=== PATIENT | female | born 1985 | race Caucasian/White ===

== ENCOUNTER → 2019-07-13 15:13 | Outpatient (BNVA) | payer MEDICAID, SELFPAY | PROVIDERS: Visit Provider Nurse Practitioner | DX: R05 Cough (principal); R50.9 Fever, unspecified | CPT/HCPCS: 87804 ==

== ENCOUNTER 2019-09-11 17:38 | Emergency (ER) | payer MEDICAID, SELFPAY ==
[2019-09-11 17:40] VITALS: BP 229/115; PULSE 99; RESP 20; TEMP 36.9; O2SAT 96; BMI 67.6
--- NOTE | 2019-09-11 17:48 | W.ED.DENTAL ---
HPI - Dental/Oral General: Chief complaint: Dental/Oral Stated complaint: DENTAL PAIN Time Seen by Provider: 09/11/19 17:40 History of Present Illness: HPI Narrative: Patient is a 34-year-old female who comes to the ED with dental pain. Pain is located in the upper jaw and around teeth #9 and 10. Pain started about a week ago and has progressed. Patient denies any swelling that is affecting airway. Pain and mild swelling in the front upper maxillary region. Patient has poor dental health and is planning on getting her teeth pulled. Patient has a dentist currently, but they are not seeing any patients because of COVID-19. She is going to call early next week to try to get an appointment set up. Denies any fever, chills, chest pain, shortness of breath, nausea, vomiting. Associated symptoms: Denies fever(s) or painful swallowing Review of Systems Const: Denies: fever, chills or fatigue Eyes: Denies: change in vision or eye discomfort ENMT: Reports: dental pain; Denies: throat pain, painful swallowing, nasal discharge or nasal congestion Card: Denies: chest pain, palpitations, edema, swelling of feet/ankles, shortness of breath on exertion or shortness of breath when lying down Resp: Denies: shortness of breath, productive cough or non-productive cough GI: Denies: abdominal pain, nausea, vomiting, diarrhea, constipation or blood in stool : Denies: flank pain, painful urination or blood in urine Musc: Denies: neck pain, back pain or extremity swelling Skin/Breast: Denies: rash or new lesion Neuro: Denies: headache, numbness in extremities or weakness in extremities [facility] ED PFSH: Medical History Anxiety and depression Chronic low back pain Diabetic neuropathy Essential hypertension Hypothyroid Insomnia PCOS (polycystic ovarian syndrome) Type 2 diabetes mellitus, with long-term current use of insulin Surgical History No pertinent past surgical history Family History Other Cancer Diabetes Social History Smoking and tobacco status: current some day smoker cigarettes Alcohol intake: current Alcohol intake frequency: holidays/special occasions only Current gender identity: Female Physical Exam Const: COMMON NORMALS: no apparent distress, oriented x3 and alert GENERAL APPEARANCE: cooperative, comfortable and well hydrated; not in distress NUTRITIONAL APPEARANCE: obese HENMT: COMMON NORMALS: normocephalic HEAD & SCALP: normocephalic MOUTH: oral and palatal mucosa normal TEETH & GINGIVA: Yes caries (multiple dental caries throughout mouth- Teeth #9 & #10 very poor condition), Yes gingiva abnormal (gingival edema, tenderness around teeth #9 & 10. ) edematous and tender and Yes poor dentition THROAT: posterior oropharynx normal and uvula midline Eye: COMMON NORMALS: PERRL PUPIL: Yes PERRL Neck/C-Spine: COMMON NORMALS: supple GENERAL: Yes normal visual inspection Lymph: LYMPHATIC: no lymphadenopathy noted (No cervical lymphadenopathy noted.) Resp: COMMON NORMALS: normal respiratory effort, no retractions, no use of accessory muscles and clear to auscultation bilaterally EFFORT & INSPECTION: Yes able to speak in complete sentences AUSCULTATION: clear to auscultation bilaterally Cardio: COMMON NORMALS: regular rate, regular rhythm, S1 normal heart sound, S2 normal heart sound, no gallops, no clicks, no murmurs and peripheral pulses 2+ throughout RATE: regular rate RHYTHM: regular rhythm HEART SOUNDS: S1 normal and S2 normal PERIPHERAL PULSES: pulses 2+ throughout GI: COMMON NORMALS: normal to inspection, nondistended, normoactive bowel sounds, soft to palpation, non-tender and no masses PALPATION: Yes soft : COMMON NORMALS: Yes no CVA tenderness BLADDER/KIDNEY EXAM: Yes no CVA tenderness Back/Pelvis: COMMON NORMALS: no CVA tenderness Extremity: COMMON NORMALS: normal to inspection and no pedal edema Neuro: COMMON NORMALS: oriented x3 and moves all extremities SENSORIUM/ORIENTATION: Yes alert Skin: COMMON NORMALS: no rashes or lesions noted GENERAL SKIN EXAM: no rashes or lesions noted and dry skin Course Vital Signs: Vital signs: Vital Signs Temperature 98.4 F 09/11/19 17:40 Pulse Rate 99 09/11/19 17:40 Respiratory Rate 20 H 09/11/19 17:40 Blood Pressure 229/115 09/11/19 17:40 Pulse Oximetry 96 09/11/19 17:40 MDM - Dental/Oral MDM Narrative: Medical decision making narrative: Patient is a 34-year-old female who comes to the ED with dental pain. Physical exam showed extensive dental caries and poor dentition health. She also had some tenderness and gingival edema around teeth numbers 9 and 10. Patient was given a hydrocodone for pain and a dose of clindamycin while here on the unit. Patient currently has a dentist but has been waiting for clinic to open back up since COV-. Patient was discharged with clindamycin and told to follow-up with dentist in the next 7 to 10 days. I told patient take ibuprofen or Tylenol for pain. Patient understood and agreed with plan. Discharge Plan Discharge Patient Disposition: Home, Self-Care Clinical Impression: Pain due to dental caries Condition: Stable Prescriptions: New clindamycin HCl 150 mg capsule 300 mg PO QID 7 Days Qty: 56 RF: 0 No Action verapamil 80 mg tablet 80 mg PO TID RF: 0 amitriptyline 75 mg tablet 75 mg PO DAILY RF: 0 lisinopril 20 mg tablet 20 mg PO DAILY RF: 0 metformin 1,000 mg tablet 1,000 mg PO BID RF: 0 gabapentin 600 mg tablet 600 mg PO BID RF: 0 sertraline [Zoloft] 100 mg tablet 100 mg PO DAILY RF: 0 levothyroxine 50 mcg capsule 50 mcg PO DAILY RF: 0 meloxicam 15 mg tablet 15 mg PO DAILY RF: 0 Lantus Solostar U-100 Insulin 100 unit/mL (3 mL) insulin pen 40 unit SUBCUT DAILY RF: 0 insulin lispro [Humalog KwikPen Insulin] 100 unit/mL insulin pen 1 unit SUBCUT TID RF: 0 trazodone 150 mg tablet 150 mg PO .at bedtime Qty: 30 RF: 0 tizanidine 4 mg capsule 4 mg PO QID PRN (Reason: muscle spasm) 30 Days Qty: 120 RF: 0 Discharge Orders: Discharge Order (Routine); Ordered 09/11/19 Ordered By: Ascencion Sparks Discharge Diet: Regular Discharge Activity: Resume usual activity Patient Instructions: Dental Caries (ED), Toothache (ED) Activity Restrictions/Additional Instructions: Take full course of antibiotics as prescribed. Follow-up with dentist next 7 to 10 days. Take Tylenol or ibuprofen to help with pain. Return to the ED if swelling gets worse and starts to affect your airway. Coding Level of Care Code ED Dust Mill Operator for Chg Fwd Exam Comprehensive
[2019-09-11] MEDS: HYDROcodone-acetaminophen 7.5-325 mg Tablet 1 TAB PO (18:12)
[2019-09-11] MEDS: clindamycin 150 mg Capsule 300 MG PO (18:12)
[2019-09-11 18:14] VITALS: BP 188/117; PULSE 96; RESP 20; O2SAT 95
== END 2019-09-11 18:17 | disposition home or self-care (01) ==
LOC: ER 18:17
PROVIDERS: Emergency Provider Physician Assistant; PCP Family Medicine
DX: K02.9 Dental caries, unspecified (principal); Z79.4 Long term (current) use of insulin; E11.40 Type 2 diabetes mellitus with diabetic neuropathy, unspecified; I10 Essential (primary) hypertension; F17.210 Nicotine dependence, cigarettes, uncomplicated; E03.9 Hypothyroidism, unspecified
CPT/HCPCS: 12345; 99282; 99283

== ENCOUNTER → 2019-09-20 12:31 | Outpatient (BNVA) | payer MEDICAID, SELFPAY | PROVIDERS: PCP Family Medicine; Visit Provider Psychiatry & Neurology Psychiatry | DX: F50.81 Binge eating disorder (principal); F33.9 Major depressive disorder, recurrent, unspecified; F06.30 Mood disorder due to known physiological condition, unspecified; E66.9 Obesity, unspecified; F41.9 Anxiety disorder, unspecified; G47.00 Insomnia, unspecified; E28.2 Polycystic ovarian syndrome; F41.1 Generalized anxiety disorder; F41.0 Panic disorder [episodic paroxysmal anxiety] | CPT/HCPCS: 99205 ==

== ENCOUNTER → 2019-09-30 10:49 | Outpatient (BNVA) | payer MEDICAID, SELFPAY | PROVIDERS: PCP Family Medicine; Visit Provider Family Medicine | DX: E11.9 Type 2 diabetes mellitus without complications (principal); I10 Essential (primary) hypertension; Z79.4 Long term (current) use of insulin; E03.9 Hypothyroidism, unspecified | CPT/HCPCS: 80053; 80061; 82044; 84443; 85025 ==

== ENCOUNTER 2019-10-07 15:06 | Outpatient (CLI) | payer MEDICAID, SELFPAY ==
[2019-10-07 15:31] LABS: Basophils # 0.1 10^3/uL (0.0-0.1); Basophils % 0.5 %; Eosinophils # 0.3 10^3/uL (0.0-0.8); Eosinophils % 2.7 %; Hematocrit 39.2 % (37.0-47.0); Hemoglobin 11.9 g/dL (11.5-15.3); Lymphocytes # 2.7 10^3/uL (0.8-4.8); Lymphocytes % 25.8 %; Mean Corpuscular HGB Conc 30.4 g/dL (30.0-36.0); Mean Corpuscular Hemoglobin 24.9 pg (28.0-34.0); Mean Corpuscular Volume 82.2 fL (81-99); Mean Platelet Volume 10.4 fL (7.4-10.4); Monocytes # 0.7 10^3/uL (0.2-0.9); Monocytes % 6.3 %; Neutrophils # 6.7 10^3/uL (1.8-7.7); Neutrophils % 64.2 %; Nucleated Red Blood Cells % 0 %; Platelet Count 349 10^3/cmm (130-400); Red Blood Count 4.77 10^6/uL (4.1-5.3); Red Cell Distribution Width 14.6 % (12.1-15.1); White Blood Count 10.5 10^3/uL (4.0-10.0)
[2019-10-07 20:18] LABS: Estmated Average Glucose 295; Hemoglobin A1C 11.9 % (4.0-6.0)
== END 2019-10-07 15:07 | disposition home or self-care (01) ==
LOC: LAB 15:10
PROVIDERS: PCP Family Medicine; Visit Provider Family Medicine
DX: E11.9 Type 2 diabetes mellitus without complications (principal); Z79.4 Long term (current) use of insulin
CPT/HCPCS: 36415; 83036; 85025

== ENCOUNTER 2019-10-12 17:24 | Emergency (ER) | payer MEDICAID, SELFPAY ==
[2019-10-12 17:35] VITALS: BP 198/121; PULSE 77; RESP 16; TEMP 36.8; O2SAT 96; BMI 63.4
--- NOTE | 2019-10-12 17:41 | W.ED.DENTAL ---
HPI - Dental/Oral General: Chief complaint: Dental/Oral Stated complaint: dental pain Time Seen by Provider: 10/12/19 17:40 History of Present Illness: HPI Narrative: She complains of dental pain ongoing not able get into the dentist presently MD Complaint: tooth pain Teeth map: 1. Onset (ago): month(s) Duration: intermittent Severity: moderate Severity scale (1-10): 5 Relieving factors: nothing Associated symptoms: Denies fever(s) Treatment prior to arrival: none Review of Systems Const: Denies: fever(s), chills or body aches Eyes: Denies: change in vision or blurry vision ENMT: Reports: other (Dental pain); Denies: throat pain or nasal congestion Card: Denies: chest pain or dyspnea on exertion Resp: Denies: dyspnea, productive cough or non-productive cough GI: Denies: abdominal pain, nausea or vomiting Musc: Denies: extremity pain Skin/Breast: Denies: rash Neuro: Denies: headache(s) Psych: Denies: anxiety or depression Levon/Lymph: Denies: easy bruising PFSH ED PFSH: Medical History (Updated 10/12/19 @ 17:45 by ROWAN Bragg) Anxiety and depression Chronic low back pain Diabetic neuropathy Essential hypertension Hypothyroid Insomnia PCOS (polycystic ovarian syndrome) Type 2 diabetes mellitus, with long-term current use of insulin Surgical History No pertinent past surgical history Family History Other Cancer Diabetes Social History Smoking and tobacco status: current every day smoker cigarettes Alcohol intake: current Alcohol intake frequency: holidays/special occasions only Current gender identity: Female Physical Exam Const: COMMON NORMALS: no acute distress, average body habitus and patient oriented x3 HENMT: COMMON NORMALS: normocephalic HEAD & SCALP: normal to inspection and normocephalic FACE & SINUS: normal facial exam TEETH & GINGIVA: Yes caries TEETH & GINGIVA IMAGES: 1. Eye: COMMON NORMALS: conjunctivae normal GENERAL EYE: appearance normal, both eyes and all related structures CONJUNCTIVA: Yes conjunctivae normal Neck/C-Spine: COMMON NORMALS: no JVD Chest: COMMONS NORMALS: normal inspection of the chest Resp: COMMON NORMALS: normal respiratory effort and clear to auscultation bilaterally AUSCULTATION: clear to auscultation bilaterally Cardio: COMMON NORMALS: no JVD, regular rate and regular rhythm RATE: regular rate RHYTHM: regular rhythm GI: OTHER: Extremely obese Extremity: COMMON NORMALS: normal to inspection and full ROM Neuro: COMMON NORMALS: patient oriented x3 Course Vital Signs: Vital signs: Vital Signs Temperature 98.3 F 10/12/19 17:35 Pulse Rate 77 10/12/19 17:35 Respiratory Rate 16 10/12/19 17:35 Blood Pressure 198/121 10/12/19 17:35 Pulse Oximetry 96 10/12/19 17:35 Discharge Plan Discharge Patient Disposition: Home, Self-Care Clinical Impression: Toothache Condition: Stable Prescriptions: New tramadol 50 mg tablet 50 mg PO Q6H PRN (Reason: pain) Qty: 14 RF: 0 Keflex 500 mg capsule 500 mg PO TID 7 Days Qty: 21 RF: 0 No Action verapamil 80 mg tablet 80 mg PO TID RF: 0 gabapentin 600 mg tablet 600 mg PO BID RF: 0 sertraline [Zoloft] 100 mg tablet 100 mg PO DAILY RF: 0 levothyroxine 50 mcg capsule 50 mcg PO DAILY RF: 0 meloxicam 15 mg tablet 15 mg PO DAILY RF: 0 lisinopril 40 mg tablet 40 mg PO DAILY Qty: 30 RF: 0 Lantus Solostar U-100 Insulin 100 unit/mL (3 mL) insulin pen 40 unit SUBCUT DAILY RF: 0 insulin lispro [Humalog KwikPen Insulin] 100 unit/mL insulin pen 1 unit SUBCUT TID RF: 0 tizanidine 4 mg capsule 4 mg PO QID PRN (Reason: muscle spasm) 30 Days Qty: 120 RF: 0 trazodone 150 mg tablet 150 mg PO .at bedtime Qty: 30 RF: 0 Vyvanse 30 mg capsule 30 mg PO DAILY 90 Days Qty: 30 RF: 0 mecobalamin (vitamin B12) 10,000 mcg recon soln 1,000 mcg IM .q2wks 84 Days Qty: 1 RF: 0 zinc gluconate-zinc picolinate 30 mg capsule 30 mg PO QDAY Qty: 30 RF: 2 atorvastatin 20 mg tablet 20 mg PO DAILY Qty: 30 RF: 0 Bydureon 2 mg/0.65 mL pen injector 2 mg SUBCUT Q7D Qty: 4 RF: 0 Victoza 3-Donnie 0.6 mg/0.1 mL (18 mg/3 mL) pen injector See Rx Instructions SUBCUT .COMPLEX Qty: 9 RF: 0 metformin 1,000 mg tablet 1,000 mg PO BID Qty: 60 RF: 0 Discharge Orders: Discharge Order (Routine); Ordered 10/12/19 Ordered By: Aldo Rowley Referrals: Fernanda Stanley DO [Primary Care Provider] - Discharge Diet: Advance as tolerated Discharge Activity: Resume usual activity Patient Instructions: Dental Caries (ED) Activity Restrictions/Additional Instructions: Take medication as prescribed follow-up with dentist as soon as possible Coding Level of Care Code ED Energy Systems Laboratory Director for Soham oMrales
== END 2019-10-12 18:02 | disposition home or self-care (01) ==
PROVIDERS: Emergency Provider Nurse Practitioner Family; PCP Family Medicine
DX: K08.89 Other specified disorders of teeth and supporting structures (principal); Z79.4 Long term (current) use of insulin; E11.40 Type 2 diabetes mellitus with diabetic neuropathy, unspecified; I10 Essential (primary) hypertension; F17.210 Nicotine dependence, cigarettes, uncomplicated
CPT/HCPCS: 12345; 99281

== ENCOUNTER → 2019-10-18 07:55 | Outpatient (BNVA) | payer MEDICAID, SELFPAY | PROVIDERS: PCP Family Medicine; Visit Provider Psychiatry & Neurology Psychiatry | DX: F50.81 Binge eating disorder (principal) | CPT/HCPCS: 99215 ==

== ENCOUNTER → 2019-11-17 07:36 | Outpatient (BNVA) | payer MEDICAID, SELFPAY | PROVIDERS: PCP Family Medicine; Visit Provider Psychiatry & Neurology Psychiatry | DX: F50.81 Binge eating disorder (principal); F33.9 Major depressive disorder, recurrent, unspecified; F41.1 Generalized anxiety disorder; F41.0 Panic disorder [episodic paroxysmal anxiety]; F17.219 Nicotine dependence, cigarettes, with unspecified nicotine-induced disorders | CPT/HCPCS: 99214 ==

== ENCOUNTER 2019-12-15 07:57 | Day surgery (SDC) | payer MEDICAID, SELFPAY ==
[2019-12-07 14:02] VITALS: BMI 61.2
[2019-12-15 08:13] VITALS: BP 185/110; PULSE 77; RESP 18; TEMP 36.2; O2SAT 97
--- NOTE | 2019-12-15 08:36 | W.PM.OPSUD ---
Surgery/Procedure H&P Update DATE OF PROCEDURE: December 15, 2019 DATE H&P PERFORMED: 12/03/19 H&P UPDATE INFORMATION: I have reviewed H&P completed within last 30 days, I have examined patient prior to procedure and No changes to prior documentation PREOP DIAGNOSIS: foreign body upper lip PLANNED PROCEDURE: Operation Date: 12/08/19 15:40 Proposed Procedures p Foreign Body Removal upper lip 50295 M79.5(Not Applicable) - Vasquez Fowler MD Operation Date: 12/15/19 09:35 Proposed Procedures p Foreign Body Removal upper lip 73940 m79.5(Not Applicable) - Vasquez Fowler MD
[2019-12-15 08:46] VITALS: BP 148/98
[2019-12-15] MEDS: sodium chloride 0.9% 1,000 ML 30 ML IV (08:50)
[2019-12-15 08:58] LABS: Glucose Point of Care 194 mg/dL (70-110)
--- NOTE | 2019-12-15 09:15 | ANES.PREANE2 ---
Pre-Anesthetic Assessment Pre-Anesthetic Assessment: Height/Weight: Height 1.5 m Weight 137.438 kg Temp Pulse Resp BP Pulse Ox 97.1 F L 77 18 148/98 97 12/15/19 08:13 12/15/19 08:13 12/15/19 08:13 12/15/19 08:46 12/15/19 08:13 Preop Diagnosis: foreign body upper lip Proposed Procedure: Operation Date: 12/08/19 15:40 Proposed Procedures p Foreign Body Removal upper lip 38816 M79.5(Not Applicable) - Vasquez Fowler MD Operation Date: 12/15/19 09:35 Proposed Procedures p Foreign Body Removal upper lip 52878 m79.5(Not Applicable) - Vasquez Fowler MD Was Beta Kamini taken within 24 hours: Yes Last intake: Intake Last Liquid Date 12/14/19 Last Solid Date 12/14/19 Social: Social History: Alcohol and Tobacco Packs per day: 0.5 Exam: Pre-Anes Outpt Exam: alert, oriented x 3, clear to auscultation bilaterally and regular rate & rhythm Airway: Submandibular: WNL Cervical ROM: WNL MP: 2 Dentition: Chipped History/ROS: No significant history except as noted and No significant complaints Pulmonary: Pulmonary: None reported CV/HEM: CV/HEM: HTN : : None reported Hepatic: Hepatic: None reported GI: GI: None reported Metabolic: Metabolic: DM, Morbid obesity and Thyroid Musc/skel: Musc/skel: None reported Neuropsych: Neuropsych: None reported Anesthetic Plan: ASA status: 3 Anesthesia: Anesthesia Evaluation and MAC Risk of > 500 ml blood loss (7ml/kg in children): No Meds/Allergies Current Medications: Current Medications Generic Name Dose Route Start Last Admin Trade Name Freq PRN Reason Stop Dose Admin Sodium Chloride 1,000 mls @ 30 ml s/hr 12/15/19 08:15 12/15/19 08:50 Sodium Chloride 0.9% IV 12/16/19 08:14 30 mls/hr .Q24H ANA Administration PFSH Anesthesia PFSH: Medical History Anxiety and depression Chronic low back pain Diabetic neuropathy Essential hypertension H/O pilonidal cyst Hypothyroid Insomnia PCOS (polycystic ovarian syndrome) Type 2 diabetes mellitus, with long-term current use of insulin Surgical History H/O hand surgery RIGHT Family History Unknown Cancer Other Diabetes Denies family history of Anesthesia complication Bleeding disorder Social History Smoking and tobacco status: current every day smoker cigarettes Packs smoked per day: 0.25 Alcohol intake: current Alcohol intake frequency: holidays/special occasions only Household members: significant other Marital status: Single Current occupational status: disabled History of recent travel: No Current gender identity: Female Data Anesthesia Other Labs: Laboratory Results - last 48 hr 12/15/19 08:34 POC Glucose 194 Cardiac Studies: No Data to Display
[2019-12-15 09:48] VITALS: BP 128/100; PULSE 75; RESP 18; TEMP 36.4; O2SAT 96
--- NOTE | 2019-12-15 10:03 | PM.OP ---
Operative Report Date of procedure: December 15, 2019 Pre-op Diagnosis: foreign body upper lip Post-op diagnosis: same Procedure Done: Removal of foreign body left upper lip Specimens removed/disposition: Scar tissue left upper lip Surgeon: Vasquez Fowler Anesthesia: MAC Condition: stable Disposition: same day Procedure: The patient was taken to the operating room and placed under MAC after IV antibiotic had been administered. The left side of the face around the lip was prepped and draped in a sterile manner. 1% lidocaine with 0.5% Marcaine was infiltrated submucosally on the upper lip. Using 15 blade the overlying mucosa over the lip piercing was excised and the piercing was removed intact. There was significant scar tissue secondary to the foreign body which had been present for months, this was excised using a 15 blade. Hemostasis was ensured and mucosa was approximated using [id number] 3-0 chromic sutures. The patient was transferred to same-day surgery in stable condition.
[2019-12-15] MEDS: HYDROcodone-acetaminophen 5-325 mg Tablet 1 TAB PO (10:10)
[2019-12-15 10:11] VITALS: BP 128/86; PULSE 74; RESP 18; O2SAT 96
== END 2019-12-15 10:34 | disposition home or self-care (01) ==
PROVIDERS: PCP Family Medicine; Visit Provider Surgery
PROC: (CPT 10120; principal; 2019-12-15 09:35)
DX: S00.551A Superficial foreign body of lip, initial encounter (principal); X58.XXXA Exposure to other specified factors, initial encounter; F41.9 Anxiety disorder, unspecified; F32.9 Major depressive disorder, single episode, unspecified; E11.40 Type 2 diabetes mellitus with diabetic neuropathy, unspecified; Z79.4 Long term (current) use of insulin; E03.9 Hypothyroidism, unspecified; E28.2 Polycystic ovarian syndrome; F17.210 Nicotine dependence, cigarettes, uncomplicated; E66.01 Morbid (severe) obesity due to excess calories; Z68.44 Body mass index [BMI] 60.0-69.9, adult
CPT/HCPCS: 10120; 12345; 36416; 81025; 82962; 88305; J2704; J3490; J7030

== ENCOUNTER → 2020-01-20 08:39 | Outpatient (BNVA) | payer MEDICAID, SELFPAY | PROVIDERS: PCP Family Medicine; Visit Provider Psychiatry & Neurology Psychiatry | DX: F33.9 Major depressive disorder, recurrent, unspecified (principal); F41.1 Generalized anxiety disorder; F50.81 Binge eating disorder; G47.00 Insomnia, unspecified; F17.219 Nicotine dependence, cigarettes, with unspecified nicotine-induced disorders | CPT/HCPCS: 99213 ==

== ENCOUNTER → 2020-02-11 14:45 | Outpatient (BNVA) | payer MEDICAID, SELFPAY | PROVIDERS: PCP Family Medicine; Visit Provider Emergency Medicine | DX: Z11.59 Encounter for screening for other viral diseases (principal) | CPT/HCPCS: 87635 ==

== ENCOUNTER → 2020-03-17 14:10 | Outpatient (BNVA) | payer MEDICAID, SELFPAY | PROVIDERS: PCP Family Medicine; Visit Provider Family Medicine Adult Medicine | DX: E03.9 Hypothyroidism, unspecified (principal); E11.9 Type 2 diabetes mellitus without complications; Z79.4 Long term (current) use of insulin; E78.5 Hyperlipidemia, unspecified; E66.01 Morbid (severe) obesity due to excess calories; Z68.44 Body mass index [BMI] 60.0-69.9, adult; I10 Essential (primary) hypertension | CPT/HCPCS: 36416; 80053; 82962; 83036; 84443 ==

== ENCOUNTER 2020-05-16 18:18 | Emergency (ER) | payer MEDICAID, SELFPAY ==
[2020-05-16 18:44] VITALS: BP 166/88; PULSE 63; RESP 18; TEMP 36.5; O2SAT 96; BMI 62.6
--- NOTE | 2020-05-16 20:36 | W.ED.BACK ---
HPI - Back Pain/Injury General: Chief Complaint: Back Pain/Injury Stated Complaint: LOWER BACK PAIN Time Seen by Provider: 05/16/20 20:29 History of Present Illness: HPI Narrative: Patient arrives via ambulance complaint of chronic low back pain. Patient requesting pain medicine to help with her back pain. Denies any recent injury or change in condition. MD elicited complaint: back pain Pertinent past history: prior back pain Onset (ago): year(s) Timing: constant and progressively worsening Similar Symptoms Previously: Yes Quality: aching Location: lumbar spine Radiation: none Exacerbating factors: movement, sitting upright and walking Relieving factors: immobilization Associated symptoms: Reports no associated symptoms; Deny abdominal pain, chills, fever(s), nausea or vomiting Review of Systems Const: Denies: fever(s), chills or body aches Eyes: Denies: change in vision or blurry vision ENMT: Denies: throat pain or nasal congestion Card: Denies: chest pain or dyspnea on exertion Resp: Denies: dyspnea, productive cough or non-productive cough GI: Denies: abdominal pain, nausea or vomiting Musc: Reports: back pain; Denies: extremity pain Skin/Breast: Denies: rash Neuro: Denies: headache(s) Psych: Denies: anxiety or depression Levon/Lymph: Denies: easy bruising PFSH ED PFSH: Medical History (Updated 05/16/20 @ 20:36 by ROWAN Bragg) Anxiety and depression Anxiety disorder, unspecified Chronic low back pain Diabetic neuropathy Dyslipidemia Essential hypertension H/O pilonidal cyst Hypothyroid Infected pierced lip Insomnia Major depression, recurrent, chronic Mood disorder due to known physiological condition, unspecified Mood disorder due to medical condition Morbid obesity with BMI of 60.0-69.9, adult PCOS (polycystic ovarian syndrome) Sebaceous cyst Type 2 diabetes mellitus, with long-term current use of insulin Surgical History (Updated 03/17/20 @ 14:16 by Dave Thompson MD) H/O hand surgery RIGHT H/O retained foreign body fully removed (12/15/19) Left upper lip Family History Unknown Cancer Other Diabetes Denies family history of Anesthesia complication Bleeding disorder Social History Smoking and tobacco status: current every day smoker cigarettes Packs smoked per day: 0.25 Alcohol intake: current Alcohol intake frequency: holidays/special occasions only Household members: significant other Marital status: Single Current occupational status: disabled History of recent travel: No Current gender identity: Female Physical Exam Const: COMMON NORMALS: no acute distress OTHER: Able to ambulate without difficulty Back/Pelvis: LUMBAR SPINE/LOWER BACK: Yes lumbar ROM normal (Patient very obese hard to inspect or palpate for pain), No lumbar spinal tenderness and No paraspinal muscle tenderness OTHER: No numbness lower extremities neurovascular status intact Psych: COMMON NORMALS: mental status grossly normal Course Vital Signs: Vital signs: Vital Signs Temperature 97.7 F 05/16/20 18:44 Pulse Rate 63 05/16/20 18:44 Respiratory Rate 18 05/16/20 18:44 Blood Pressure 166/88 05/16/20 18:44 Pulse Oximetry 96 05/16/20 18:44 Discharge Plan Discharge Patient Disposition: Home Clinical Impression: Chronic low back pain Qualifiers: Back pain laterality: bilateral Sciatica presence: without sciatica Qualified Code(s): M54.5 - Low back pain Condition: Stable Prescriptions: No Action insulin lispro [Humalog KwikPen Insulin] 100 unit/mL insulin pen 15 unit SUBCUT TID Qty: 15 RF: 2 (DME) blood-glucose meter [Accu-Chek Letha Plus Meter] Misc See Rx Instructions .ROUTE .MEDSUPPLY Qty: 1 RF: 0 (DME) pen needle, diabetic [1st Tier Unifine Pentips] 32 gauge x 5/32 needle See Rx Instructions .ROUTE .MEDSUPPLY Qty: 200 RF: 1 (DME) Accu-Chek Letha Plus test strp Strip See Rx Instructions .ROUTE .MEDSUPPLY Qty: 200 RF: 3 (DME) lancets [Accu-Chek Fastclix Lancet Drum] Misc See Rx Instructions .ROUTE .MEDSUPPLY Qty: 200 RF: 2 fluoxetine 20 mg capsule 20 mg PO DAILY Qty: 30 RF: 1 Lantus Solostar U-100 Insulin 100 unit/mL (3 mL) insulin pen 50 unit SUBCUT DAILY Qty: 15 RF: 0 tizanidine 4 mg capsule 4 mg PO QID PRN (Reason: muscle spasm) 30 Days Qty: 120 RF: 2 Victoza 3-Donnie 0.6 mg/0.1 mL (18 mg/3 mL) pen injector 1.8 mg SUBCUT Q24H Qty: 9 RF: 2 levothyroxine 50 mcg capsule 50 mcg PO DAILY Qty: 30 RF: 5 verapamil 80 mg tablet 80 mg PO TID Qty: 90 RF: 5 meloxicam 15 mg tablet 15 mg PO DAILY Qty: 30 RF: 2 atorvastatin 20 mg tablet 20 mg PO DAILY Qty: 30 RF: 2 losartan 50 mg tablet 50 mg PO DAILY Qty: 90 RF: 1 trazodone 150 mg tablet 150 mg PO .at bedtime Qty: 30 RF: 2 metformin 1,000 mg tablet 1,000 mg PO BID Qty: 60 RF: 5 gabapentin 600 mg tablet 600 mg PO BID Qty: 60 RF: 1 Discharge Orders: Discharge ED (Routine); Ordered 05/16/20 Ordered By: Aldo Rowley Referrals: Fernanda Stanley DO [Primary Care Provider] - Discharge Diet: Usual diet Discharge Activity: Increase activity as tolerated Patient Instructions: Chronic Back Pain (ED) Activity Restrictions/Additional Instructions: Follow-up with medical provider as directed. Take medications as prescribed. Return to the ER or your medical provider if condition worsens. Please read and understand discharge instructions. If any questions ask please. Follow-up Dr. Stanley soon as possible. Can apply ice to the back. Can apply lidocaine patches. Coding Level of Care Code ED Senior Policy Advisor for Soham Morales
[2020-05-16] MEDS: ketorolac 60 mg/2 mL INJ IM (20:47)
== END 2020-05-16 20:51 | disposition home or self-care (01) ==
PROVIDERS: Emergency Provider Nurse Practitioner Family; PCP Family Medicine
DX: G89.29 Other chronic pain (principal); M54.5 Low back pain; Z79.4 Long term (current) use of insulin; E11.40 Type 2 diabetes mellitus with diabetic neuropathy, unspecified; E78.5 Hyperlipidemia, unspecified; I10 Essential (primary) hypertension; F17.210 Nicotine dependence, cigarettes, uncomplicated
CPT/HCPCS: 12345; 99281; 99283; J1885

== ENCOUNTER → 2020-05-24 09:50 | Outpatient (BNVA) | payer MEDICAID, SELFPAY | PROVIDERS: PCP Family Medicine; Visit Provider Obstetrics & Gynecology | DX: Z12.4 Encounter for screening for malignant neoplasm of cervix (principal); B37.3 Candidiasis of vulva and vagina; B37.2 Candidiasis of skin and nail; L08.9 Local infection of the skin and subcutaneous tissue, unspecified | CPT/HCPCS: 88175 ==

== ENCOUNTER → 2020-06-19 10:35 | Outpatient (BNVA) | payer MEDICAID, SELFPAY | PROVIDERS: PCP Family Medicine; Visit Provider Obstetrics & Gynecology | DX: N89.8 Other specified noninflammatory disorders of vagina (principal); B37.3 Candidiasis of vulva and vagina; B37.2 Candidiasis of skin and nail; E66.01 Morbid (severe) obesity due to excess calories; Z68.44 Body mass index [BMI] 60.0-69.9, adult | CPT/HCPCS: 87070; 87106; 87205 ==

== ENCOUNTER → 2020-06-28 07:43 | Outpatient (BNVA) | payer MEDICAID, SELFPAY | PROVIDERS: PCP Family Medicine; Visit Provider Psychiatry & Neurology Psychiatry | DX: F41.1 Generalized anxiety disorder (principal); F41.0 Panic disorder [episodic paroxysmal anxiety]; G47.00 Insomnia, unspecified; F17.219 Nicotine dependence, cigarettes, with unspecified nicotine-induced disorders | CPT/HCPCS: 99214 ==

== ENCOUNTER 2020-09-26 12:56 | Outpatient (CLI) | payer MEDICAID, SELFPAY ==
--- NOTE | 2020-09-26 13:03 | XR_ITS ---
WS: [id number] LUMBAR SPINE: 5 VIEWS TECHNIQUE: AP, obliques, lateral and L5-S1 spot. HISTORY: LOW BACK PAIN, CHRONIC COMPARISON: 03/07/2018 Lumbar vertebra are normally aligned. Small endplate osteophytes at all levels and facet arthritis. L2 limbus deformity. No significant for aminal stenosis. SI joints are symmetric bilaterally. No soft tissue abnormalities. XR/XR lumbar spine min 4V [id number] IMPRESSION: Mild lumbar spondylosis. No acute fractures or significant foraminal stenosis.
== END 2020-09-26 12:57 | disposition home or self-care (01) ==
PROVIDERS: PCP Family Medicine; Visit Provider Nurse Practitioner Family
DX: M54.5 Low back pain (principal); M47.816 Spondylosis without myelopathy or radiculopathy, lumbar region
CPT/HCPCS: 72110

== ENCOUNTER → 2020-10-17 12:57 | Outpatient (BNVA) | payer MEDICAID, SELFPAY | PROVIDERS: PCP Nurse Practitioner Family; Referring Provider Nurse Practitioner Family; Visit Provider Anesthesiology | DX: G89.29 Other chronic pain (principal); M54.5 Low back pain; F17.219 Nicotine dependence, cigarettes, with unspecified nicotine-induced disorders; Z79.891 Long term (current) use of opiate analgesic; Z71.6 Tobacco abuse counseling | CPT/HCPCS: 99204 ==

== ENCOUNTER → 2020-11-08 07:43 | Outpatient (BNVA) | payer MEDICAID, SELFPAY | PROVIDERS: PCP Nurse Practitioner Family; Visit Provider Psychiatry & Neurology Psychiatry | DX: F41.1 Generalized anxiety disorder (principal); F41.0 Panic disorder [episodic paroxysmal anxiety]; G47.00 Insomnia, unspecified; F17.219 Nicotine dependence, cigarettes, with unspecified nicotine-induced disorders | CPT/HCPCS: 99214 ==

== ENCOUNTER 2021-04-14 12:07 | Inpatient (IN) | payer MEDICAID, SELFPAY ==
[2021-04-14] VITALS (7 sets, daily range): BP systolic 112–150; BP diastolic 72–95; PULSE 77–116; RESP 18–24; TEMP 36.9–37.3; O2SAT 97–98; BMI 60.5
--- NOTE | 2021-04-14 12:18 | ED.C_ITS ---
HPI - Psych General: Chief Complaint: Psychiatric Symptoms Stated Complaint: DRUG INGESTION Time Seen by Provider: 04/14/21 12:16 History of Present Illness: HPI Narrative: Ms. Calderon is a 36-year-old lady with history of polysubstance abuse, hypertension, hyperlipidemia, hypothyroidism, and insulin-dependent diabetes who presents to the emergency department due to drug ingestion. She reports yesterday she was high on meth and broke up with her significant other. This caused her to feel depressed and suicidal. Approximately 1 hour prior to arrival she took some amount of her medications. She variably reports the number and what medication. To me the patient endorses taking approximately 6 to 7 tablets of one of her blood pressure medications though she is unsure of which one. She reports that she did this with the intention of self-harm and not wanting to be here anymore . she may have told EMS that she took her levothyroxine. The patient clinically appears that she is withdrawing or intoxicated with amphetamines and history is somewhat limited. Otherwise denies medical complaints. No other known specific exacerbating, alleviating, or provoking factors. Denies similar episodes in the past Supplemental information provided by the patient's mother is that the patient has been living in [facility] [place] with individuals who also abuses drugs, they do not currently have heat or electricity so she was moved with a girlfriend to a trailer however has also struggled to take care of herself due to drug habit. She keeps approximately 1 week of medications in a pill container and took up to 4 days worth of medications though it is still unclear exactly which ones she took. Review of Systems General: Reports: 10 or more systems reviewed and unremarkable except in HPI and below PFS ED PFSH: Medical History Anxiety and depression Diagnosed in 2016 and has been on medication. Currently managed by Dr. Devries in [facility]. Chronic low back pain Since about 2014 and currently take ibuprofen. Dyslipidemia Diagnosed in 2016 and is currently on medication managed by her primary care provider Essential hypertension Diagnosed in 2016 and is currently on medication managed by her primary care provider. 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 Does not have an boat joiner helper No pertinent past medical history Denies asthma, seizures, DVT/PE PCP: Dr. Stanley Pain management contract signed Type 2 diabetes mellitus, with long-term current use of insulin Diagnosed in 2007 and is currently on medication managed by her primary care provider. Does not have an boat joiner helper. Surgical History H/O hand surgery Right hand for an infection in 2019 H/O retained foreign body fully removed (12/15/19) Left upper lip Family History Grandmother Diabetes maternal Family/Other Diabetes maternal uncle Denies family history of Colon cancer Ovarian cancer Heart disease Hyperlipidemia Breast cancer Anesthesia complication Bleeding disorder Hypertension Uterine cancer Thyroid condition Stroke Social History Smoking and tobacco status: current every day smoker cigarettes Quit status (tobacco): considering quitting Alcohol intake: current Alcohol intake frequency: holidays/special occasions only Alcohol type: wine Household members: significant other Marital status: Single Current occupational status: disabled History of recent travel: No Current gender identity: Female Physical Exam Narrative: EXAM NARRATIVE: GENERAL/CONSTITUTIONAL - No acute distress. Obese Eyes - PERRL, no conjunctival injection ENMT - Atraumatic external nose and ears. Moist mucous membranes NECK - supple. trachea midline CARDIOVASCULAR -tachycardic rate and regular rhythm. Normal peripheral perfusion RESPIRATORY -clear to auscultation bilaterally. ABDOMEN/GI - Nontender/Nondistended. MSK - Extremities without obvious deformity or tenderness to palpation SKIN - Warm, Dry. Scattered scabs and pick vogt NEURO - alert and appropriately oriented. Moves all extremities equally. PSYCH - poor eye contact. Patient appears clinically intoxicated. Speech at times is mumbled. Course ED course: - Patient was seen and evaluated by me at bedside - Patient placed on cardiac monitors, IV access obtained - Initial evaluation notable for exam as noted above. - Labs notable for leukocytosis, metabolic panel with likely evidence of dehydration. Toxic ingestion labs positive for amphetamine and marijuana on UD S. - Based on ED evaluation at this point there is no obvious condition that would preclude the patient from inpatient management of psychiatric concerns. - Patient likely needs oral rehydration. - Psychiatry service contacted and agreed to admit the patient. Vital Signs: Vital signs: Vital Signs Temperature 98 F 04/18/21 11:13 Pulse Rate 78 04/18/21 11:13 Respiratory Rate 15 04/18/21 11:13 Blood Pressure 134/87 04/18/21 11:13 Pulse Oximetry 100 04/18/21 11:13 [facility] - Psych Medical Records: Attestation: I reviewed the patient's medical records. Lab Data: Attestation: I reviewed the patient's lab results. Labs: Lab Results 04/14/21 04/14/21 04/14/21 13:08 13:08 16:20 WBC 15.6 10^3/uL H 10 ^3/uL (4.0-10.0) RBC 5.40 10^6/uL H 10 ^6/uL (4.1-5.3) Hgb 13.7 g/dL g/dL (11.5-15.3) Hct 45.1 % % (37.0-47.0) MCV 83.5 fl fl (81-99) MCH 25.4 pg L pg (28.0-34.0) MCHC 30.4 g/dL g/dL (30.0-36.0) RDW 15.5 % H % (12.1-15.1) Plt Count 421 10^3/cmm H 10 ^3/cmm (130-400) MPV 11.5 fL H fL (7.4-10.4) Neut % (Auto) 71.9 % % Lymph % (Auto) 20.2 % % Brooke % (Auto) 6.7 % % Eos % (Auto) 0.4 % % Baso % (Auto) 0.4 % % Neut # (Auto) 11.18 10^3/uL H 1 0^3/uL (1.8-7.7) Lymph # (Auto) 3.2 10^3/uL 10^3/ uL (0.8-4.8) Brooke # (Auto) 1.1 10^3/uL H 10^ 3/uL (0.2-0.9) Eos # (Auto) 0.1 10^3/uL 10^3/ uL (0.0-0.8) Baso # (Auto) 0.1 10^3/uL 10^3/ uL (0.0-0.1) Nucleated RBC % (a uto) 0 % % Nucleated RBCs # 0.0 /100WBC /100W BC Sodium 136 mmol/L mmol/L (136-145) Potassium 3.8 mmol/L mmol/L (3.5-5.1) Chloride 102 mmol/L mmol/L (98-107) Carbon Dioxide 17 mmol/L L mmol/ L (22-29) Anion Gap 20.8 H (5-19) BUN 12 mg/dL mg/dL (6-20) Creatinine 0.6 mg/dL mg/dL (0.5-0.9) GFR Calculation 113.1 mL/min mL/m in (90-130) Glucose 228 mg/dL H mg/dL (65-115) POC Glucose Calculated Osmolal ity 289 mOsm/kg mOsm/ kg (285-295) Calcium 9.6 mg/dL mg/dL (8.5-10.5) Total Bilirubin 1.2 mg/dL mg/dL (0.15-1.2) AST 21 U/L U/L (0-32) ALT 12 U/L U/L (0-33) Alkaline Phosphata se 83 IU/L IU/L (35-105) Total Protein 7.9 g/dL g/dL (6.6-8.7) Albumin 4.3 g/dL g/dL (3.5-5.2) Globulin 3.6 g/dL g/dL (1.3-4.6) TSH 1.29 uIU/mL uIU/m L (0.27-4.20) HCG, Qual Negative (Negative) Salicylates < 0.3 mg/dL L mg/ dL (3-10) Urine Opiates Scre en Acetaminophen < 5.0 ug/mL L ug/ mL (10-30) Ur Barbiturates Sc reen Ur Phencyclidine S crn Ur Amphetamines Sc reen U Benzodiazepines Scrn Urine Cocaine Scre en U Marijuana (THC) Screen Ethyl Alcohol < 10 mg/dL mg/dL (0-10) 04/14/21 04/14/21 16:20 18:00 WBC RBC Hgb Hct MCV MCH MCHC RDW Plt Count MPV Neut % (Auto) Lymph % (Auto) Brooke % (Auto) Eos % (Auto) Baso % (Auto) Neut # (Auto) Lymph # (Auto) Brooke # (Auto) Eos # (Auto) Baso # (Auto) Nucleated RBC % (a uto) Nucleated RBCs # Sodium Potassium Chloride Carbon Dioxide Anion Gap BUN Creatinine GFR Calculation Glucose POC Glucose 181 mg/dL H mg/dL (70-110) Calculated Osmolal ity Calcium Total Bilirubin AST ALT Alkaline Phosphata se Total Protein Albumin Globulin TSH HCG, Qual Salicylates Urine Opiates Scre en Negative ng/mL ng /mL (Negative) Acetaminophen Ur Barbiturates Sc reen Negative ng/mL ng /mL (Negative) Ur Phencyclidine S crn Negative ng/mL ng /mL (Negative) Ur Amphetamines Sc reen Positive ng/mL H ng/mL (Negative) U Benzodiazepines Scrn Negative ng/mL ng /mL (Negative) Urine Cocaine Scre en Negative ng/mL ng /mL (Negative) U Marijuana (THC) Screen Positive ng/mL H ng/mL (Negative) Ethyl Alcohol EKG Data^: EKG 1: Attestation: I personally reviewed and interpreted this EKG as follows: EKG interpretation date: 04/14/21 EKG interpretation time: 12:53 Interpretation: Twelve-lead EKG shows a 81. CA interval 168, QRS duration 88, QTc 419. Normal axis. Interpretation: Sinus rhythm. EKG 2: Attestation: I personally reviewed and interpreted this EKG as follows: EKG interpretation date: 04/14/21 EKG interpretation time: 17:27 Interpretation: Twelve-lead EKG shows a regular rhythm at a rate of 69. CA interval 160, QRS duration 87, QTc 426. Normal axis. Interpretation: Sinus rhythm. Discharge Plan Discharge Patient Disposition: Admitted As Inpatient Admit Provider: Justin Bender Clinical Impression: Suicide attempt, Type 2 diabetes mellitus, with long-term current use of insulin, Acute psychosis, Polysubstance abuse Condition: Stable Discharge Diet: Diabetic Discharge Activity: Resume usual activity Coding Level of Care Code ED Publication Distributor for Soham Morales
--- NOTE | 2021-04-14 12:27 | ECG_ITS ---
[facility] Test Date: 2021-04-14 Pat Name: Asia Calderon Department: Room: Gender: Female Head Bone Grinder: : 1985 Requested By: Missael Avendaño Order Number: [id number] Sathish MD: Nader Perera M.D. Measurements Intervals [place] Rate: 81 P: 46 WI: 168 QRS: 60 QRSD: 88 T: 43 QT: 382 QTc: 445 Interpretive Statements SINUS RHYTHM Compared to ECG 07/09/2017 09:03:11 Sinus arrhythmia no longer present Myocardial infarct finding no longer present Electronically Signed On 04-15-2021 13:17:32 REFUGE MANAGER by Nader Perera M.D. [id number] f
[2021-04-14 13:22] LABS: Basophils # 0.1 10^3/uL (0.0-0.1); Basophils % 0.4 %; Eosinophils # 0.1 10^3/uL (0.0-0.8); Eosinophils % 0.4 %; Hematocrit 45.1 % (37.0-47.0); Hemoglobin 13.7 g/dL (11.5-15.3); Lymphocytes # 3.2 10^3/uL (0.8-4.8); Lymphocytes % 20.2 %; Mean Corpuscular HGB Conc 30.4 g/dL (30.0-36.0); Mean Corpuscular Hemoglobin 25.4 pg (28.0-34.0); Mean Corpuscular Volume 83.5 fl (81-99); Mean Platelet Volume 11.5 fL (7.4-10.4); Monocytes # 1.1 10^3/uL (0.2-0.9); Monocytes % 6.7 %; Neutrophils # 11.18 10^3/uL (1.8-7.7); Neutrophils % 71.9 %; Nucleated Red Blood Cells % 0 %; Platelet Count 421 10^3/cmm (130-400); Red Cell Distribution Width 15.5 % (12.1-15.1); White Blood Count 15.6 10^3/uL (4.0-10.0)
[2021-04-14] MEDS: LORazepam 2 mg/mL INJ 1 mL 1 MG IM (13:37)
[2021-04-14 13:51] LABS: Alanine Aminotransferase 12 U/L (0-33); Albumin Level 4.3 g/dL (3.5-5.2); Alkaline Phosphatase 83 IU/L (35-105); Anion Gap 20.8 (5-19); Aspartate Amino Transferase 21 U/L (0-32); Blood Urea Nitrogen 12 mg/dL (6-20); Calcium 9.6 mg/dL (8.5-10.5); Carbon Dioxide 17 mmol/L (22-29); Chloride 102 mmol/L (98-107); Globulin 3.6 g/dL (1.3-4.6); Glomerular Filtration Rate 113.1 mL/min (90-130); Glucose 228 mg/dL (65-115); Osmolality Calculated 289 mOsm/kg (285-295); Potassium 3.8 mmol/L (3.5-5.1); Sodium 136 mmol/L (136-145); Thyroid Stimulating Hormone 1.29 uIU/mL (0.27-4.20); Total Bilirubin 1.2 mg/dL (0.15-1.2); Total Protein 7.9 g/dL (6.6-8.7)
[2021-04-14 13:53] LABS: Acetaminophen < 5.0 ug/mL (10-30); Alcohol Level < 10 mg/dL (0-10); Salicylate < 0.3 mg/dL (3-10)
[2021-04-14] MEDS: LORazepam 2 mg/mL INJ 1 mL IM (14:01)
--- NOTE | 2021-04-14 14:45 | PC.NURSE ---
This RN spoke with pts mom and brother trying to get information about what pt took. When this RN asked pt if she had any thoughts of hurting herself, pt replied yes, I dont want to live anymore . Pt then asked by this RN if something recently happened, pt replied my girlfriend just left me . Pt unclear what she took, mom and brother states pt takes thyroid, blood pressure and oral diabetic medication. Pts brother states pt takes her weeks worth of medication and places then in a weekly pill dispenser and the pill dispenser was empty. Pt reports to this RN she also did Meth today. Mom states for the past 4 days pt has been staying in a local hotel as she is currently homeless, pt was supposed to move into a travel trailer today with friends. Pts brother reports he went to the hotel earlier this afternoon to check on pt after their mom tried repeatedly calling pt. Brother states he knocked on the door of the room for a few minutes and when pt did not answer he went and got a room foster from the assistant front office manager. Brtoerh states he walked into the room and found pt lying face down on the bed with one foot jerking. Brother states he was able to speak with pt, pt brought in to ER. Pt appears to be very restless and agitated but somewhat cooperative. Pt alert, vs taken. Pt placed in psych safe room with sitter at door.
--- NOTE | 2021-04-14 16:29 | PC.NURSE ---
Pt attempted to use commode, unable to give urine. Per Dr. Avendaño pt straight cathed and urine sent ot lab
[2021-04-14 16:40] LABS: HCG Qualitative Urine. Negative (Negative)
[2021-04-14 16:45] LABS: Amphetamines Screen Urine Positive (Negative); Barbiturates Screen Urine Negative (Negative); Benzodiazepines Screen Urine Negative (Negative); Cocaine Screen Urine Negative (Negative); Opiate Screen Urine Negative (Negative); PCP Screen Urine Negative (Negative); THC Screen Urine Positive (Negative)
--- NOTE | 2021-04-14 16:47 | ECG_ITS ---
[facility] Test Date: 2021-04-14 Pat Name: Asia Calderon Department: Room: Gender: Female Dental Service Chief: : 1985 Requested By: Missael Avendaño Order Number: [id number] Sathish MD: Nader Perera M.D. Measurements Intervals [place] Rate: 69 P: 40 NC: 160 QRS: 64 QRSD: 87 T: 42 QT: 407 QTc: 438 Interpretive Statements SINUS RHYTHM WITH SINUS ARRHYTHMIA Compared to ECG 04/14/2021 12:51:38 No significant changes Electronically Signed On 04-16-2021 17:12:34 CONTINUOUS WASHER OPERATOR by Nader Perera M.D. [email or web address]/store/[id number] f
--- NOTE | 2021-04-14 18:06 | PC.NURSE ---
Pts blood glucose; 181. Dr. Avendaño advised
[2021-04-14 18:07] LABS: Glucose Point of Care 181 mg/dL (70-110)
--- NOTE | 2021-04-14 18:52 | PC.NURSE ---
Poison control calling to f/u with pt.
[2021-04-15 05:35] VITALS: BMI 60.5
[2021-04-15 06:00] VITALS: BP 153/85; PULSE 74; RESP 17; TEMP 36.7; O2SAT 96
[2021-04-15 06:26] LABS: Glucose Point of Care 142 mg/dL (70-110)
[2021-04-15] MEDS: neomycin-poly-bacitracin oint 28 gm 1 APPLIC TOPICAL ×2 (07:54→17:04)
[2021-04-15 07:55] VITALS: BP 153/85
[2021-04-15] MEDS: nystatin powder 15 gm Btl 1 APPLIC TOPICAL ×2 (07:55→17:04)
[2021-04-15] MEDS: losartan 50 mg Tablet PO (07:55)
[2021-04-15] MEDS: insulin lispro 100 unit/1 mL SUBCUT ×4 (07:56→20:28)
--- NOTE | 2021-04-15 11:06 | W.PM.NPUH&PS ---
Providers/Chief Complaint Admitting Physician: Justin Bender MD Primary Care Provider: Agnieszka Aguilar Chief Complaint: DRUG INGESTION HPI NPU History of Present Illness Asia Calderon is a 36 year old female who presented to the ED with the following report: Chief Complaint: Psychiatric Symptoms Stated Complaint: DRUG INGESTION Time Seen by Provider: 04/14/21 12:16 History of Present Illness: HPI Narrative: Ms. Calderon is a 36-year-old lady with history of polysubstance abuse, hypertension, hyperlipidemia, hypothyroidism, and insulin-dependent diabetes who presents to the emergency department due to drug ingestion. She reports yesterday she was high on meth and broke up with her significant other. This caused her to feel depressed and suicidal. Approximately 1 hour prior to arrival she took some amount of her medications. She variably reports the number and what medication. To me the patient endorses taking approximately 6 to 7 tablets of one of her blood pressure medications though she is unsure of which one. She reports that she did this with the intention of self-harm and not wanting to be here anymore . she may have told EMS that she took her levothyroxine. The patient clinically appears that she is withdrawing or intoxicated with amphetamines and history is somewhat limited. Otherwise denies medical complaints. No other known specific exacerbating, alleviating, or provoking factors. Denies similar episodes in the past Supplemental information provided by the patient's mother is that the patient has been living in [place] with individuals who also abuses drugs, they do not currently have heat or electricity so she was moved with a girlfriend to a trailer however has also struggled to take care of herself due to drug habit. She keeps approximately 1 week of medications in a pill container and took up to 4 days worth of medications though it is still unclear exactly which ones she took. She was admitted to the neuropsychiatric unit for definitive treatment of those issues. She presents today reporting that she has never been in a psychiatric hospital, she has never had outpatient services, and she has never had medication management, however, she has been on Prozac, in the past, and detailed exploration of records from pharmacies actually has her not having taken it for months. She said she thought she had been up to 40 milligrams. She reports she smokes cigarettes occasionally, drinks alcohol occasionally, has marijuana occasionally, and has had significant struggles with methamphetamine. She denies ever having been to a drug rehabilitation or having a DUI. She reports that things got problematic for her recently, when she and her girlfriend were fighting, and she started having suicidal thoughts, and reports that she was thinking about, or trying, to hang herself. She reports that they broke up and she took some pills. She denies ever having suicide attempts, in the past. She denies past self-injurious behavior. She reports that she is very impulsive. We discussed the risks, benefits, and alternatives of her increasing the Prozac, if we are able to determine that it is actually a medication she is taking but, otherwise, we would restart the prozac at 20 milligrams po qam, and she understood and agreed to proceed as documented this note. PSYCHIATRIC HISTORY: As above. SUBSTANCE ABUSE HISTORY: As above. FAMILY HISTORY: She denies any mental health or addiction issues in her family. DEVELOPMENTAL HISTORY: The patient denies any issues with her mother?s or delivery of her. She learned to walk and talk and met all developmental milestones on time. The patient denies speech therapy, learning support, emotional support, or special education classes. PSYCHOSOCIAL HISTORY: The patient reports that her mother and father were together when she was born, but that she is the only product of that union. She reports that her mom had three other children, other than her, and she believes her dad had some kids, but she is not sure. She reports that her childhood was pretty good and denies emotional, physical, or sexual abuse. She denied any traumas is her life. She graduated from high school but did not graduate from college. She endorses being bisexual with her longest relationship being five years. She has never been , and she never had children. She has never been in the . She denies any yarsani belief system. She reports that she has a limited work history and currently lives in a camper. LEGAL HISTORY: She reports that she has never been to fdc or had any serious legal peril. MEDICAL HISTORY: Denied. She does have obesity per her BMI. Please see ED note for additional details. Meds NPU Home Medications Medication Instructions Recorded Confirmed Last Taken Type blood sugar diagnostic #200 each 11/29/19 04/14/21 Unknown Rx blood-glucose meter #1 each 11/29/19 04/14/21 Unknown Rx lancets #200 each 11/29/19 04/14/21 Unknown Rx pen needle, diabetic 32 gauge x #200 each 11/29/19 04/14/21 Unknown Rx insulin lispro 100 unit/mL 15 unit SUBCUT TID #15 ml 02/02/20 04/14/21 Unknown Rx subcutaneous pen atorvastatin 20 mg tablet 20 mg PO DAILY #30 tab 03/30/20 04/14/21 04/14/21 Rx 80 mg levothyroxine 50 mcg capsule 50 mcg PO DAILY #30 cap 03/30/20 04/14/21 04/14/21 Rx 200 mcg liraglutide 0.6 mg/0.1 mL (18 mg/3 1.8 mg SUBCUT Q24H #9 ml 03/30/20 04/14/21 Unknown Rx mL) subcutaneous pen injector losartan 50 mg tablet 50 mg PO DAILY #90 tab 03/30/20 04/14/21 04/14/21 Rx 200 mg metformin 1,000 mg tablet 1,000 mg PO BID #60 tab MDD see 03/30/20 04/14/21 Unknown Rx pharmacy comment verapamil 80 mg tablet 80 mg PO TID #90 tab 03/30/20 04/14/21 Unknown Rx insulin glargine 100 unit/mL (3 50 unit SUBCUT DAILY #15 ml 05/19/20 04/14/21 Unknown Rx mL) subcutaneous pen tizanidine 4 mg tablet 4 mg PO TID PRN 30 Days #90 tab 10/17/20 04/14/21 Unknown Rx fluoxetine 40 mg capsule 40 mg PO DAILY #30 cap 11/08/20 04/14/21 04/14/21 Rx 160 mg trazodone 150 mg tablet 450 mg PO .HS #90 tab MDD see 11/08/20 04/14/21 Unknown Rx pharmacy comment Allergies Allergy/AdvReac Type Severity Reaction Status Date / Time cyclobenzaprine AdvReac Intermediate dry mouth Verified 11/07/20 11:59 [From Flexeril] PFSH NPU PFS: Medical History Anxiety and depression Diagnosed in 2015 and has been on medication. Currently managed by Dr. Devries in [facility]. Chronic low back pain Since about 2014 and currently take ibuprofen. Dyslipidemia Diagnosed in 2016 and is currently on medication managed by her primary care provider Essential hypertension Diagnosed in 2016 and is currently on medication managed by her primary care provider. Has no director investment banking Hypothyroid Diagnosed in 2016 and is currently managed by her primary care provider. Does not have an nail puller No pertinent past medical history Denies asthma, seizures, DVT/PE PCP: Dr. Stanley Pain management contract signed Type 2 diabetes mellitus, with long-term current use of insulin Diagnosed in 2007 and is currently on medication managed by her primary care provider. Does not have an nail puller. Surgical History H/O hand surgery Right hand for an infection in 2019 H/O retained foreign body fully removed (12/15/19) Left upper lip Family History Grandmother Diabetes maternal Family/Other Diabetes maternal uncle Denies family history of Colon cancer Ovarian cancer Heart disease Hyperlipidemia Breast cancer Anesthesia complication Bleeding disorder Hypertension Uterine cancer Thyroid condition Stroke Social History Smoking and tobacco status: current every day smoker cigarettes Quit status (tobacco): considering quitting Alcohol intake: current Alcohol intake frequency: holidays/special occasions only Alcohol type: wine Household members: significant other Marital status: Single Current occupational status: disabled History of recent travel: No Current gender identity: Female Mental Status Exam MSE Comments: This is an obese, white female, in hospital scrubs with limited grooming and eye contact. No abnormal movements. Cooperative with exam in no acute distress. Speech was slightly decreased rate and volume. Mood described as okay; affect congruent. Thought process, organized. Thought content: patient denied any suicidal or homicidal ideation, there were no delusions reported or noted, patient denied any auditory or visual hallucinations. Attention, concentration, and memory appear intact but none were formally tested. She is alert and oriented times three. Insight and judgment appear limited. Impulse control is impaired. Vitals/I&O/Wt Last Vital Signs Temp 98.0 F 04/15/21 06:00 Pulse 74 04/15/21 06:00 Resp 17 04/15/21 06:00 BP 153/85 04/15/21 07:55 Pulse Ox 96 04/15/21 06:00 Weight last 48 hrs Weight 136.078 kg Weight 136.078 kg Data NPU : 04/14/21 13:08 04/14/21 13:08 A&P Assessment and plan (1) Suicide attempt: Status: Acute (2) Acute psychosis: Status: Acute (3) Polysubstance abuse: Status: Acute (4) Pain management contract signed: Status: Acute (5) Vulvovaginal candidiasis: Status: Acute (6) Skin yeast infection: Status: Acute (7) Dyslipidemia: Status: Acute (8) Morbid obesity with BMI of 60.0-69.9, adult: Status: Acute (9) Chronic diarrhea: Status: Acute (10) Hypothyroid: Status: Chronic (11) Generalized anxiety disorder with panic attacks: Status: Acute (12) Nicotine dependence, cigarettes, with unspecified nicotine-induced disorders: Status: Chronic (13) Type 2 diabetes mellitus, with long-term current use of insulin: Status: Chronic (14) Essential hypertension: Status: Chronic (15) Chronic low back pain: Status: Chronic Qualifiers: Back pain laterality: bilateral Sciatica presence: without sciatica Qualified Code(s): M54.5 - Low back pain; G89.29 - Other chronic pain Additional A&P Information This is a 36-year-old, white female, with no significant mental health history that she has shared, but chart review suggests that she may be confused with follow up at [facility] noted in her chart, with history of depression and drug addiction. 1. Start Prozac 20 mg po qam, and we will continue to evaluate if she is actually receiving medication through a source that is not registering in systems. 2. Encourage individual, group, and milieu therapy. 3. Continue q-15 minute checks for safety. 4. Recommend sober living treatment at the highest level of care to which the patient is willing to commit. Involuntary Hold Information 96 Hour Hold: 96 Hour Involuntary Admission: Yes 96 Hour Hold Ending Date: 04/20/21 96 Hour Hold Ending Time: 00:01 Attestations NPU Medical Necessity Statement*: Inpatient hospitalization is medically necessary and the clinically appropriate intervention, at this time. We will monitor medications and make changes as indicated. Patient will be in the hospital for over two midnights. Likely length of stay is three to five days. Coding Level of Care Code Acute Restuarant Crew Worker for [facility] Fwd Diagnoses Suicide attempt T14.91XA Acute psychosis F23 Polysubstance abuse F19.10 Pain management contract signed Z02.89 Vulvovaginal candidiasis B37.3 Skin yeast infection B37.2 Dyslipidemia E78.5 Morbid obesity with BMI of 60.0-69.9, adult E66.01; Z68.44 Chronic diarrhea K52.9 Hypothyroid E03.9 Generalized anxiety disorder with panic attacks F41.1; F41.0 Nicotine dependence, cigarettes, with unspecified nicotine-induced disorders F17.219 Type 2 diabetes mellitus, with long-term current use of insulin E11.9; Z79.4 Essential hypertension I10 Chronic low back pain M54.5; G89.29 Back pain laterality: bilateral Sciatica presence: without sciatica
[2021-04-15 11:28] LABS: Glucose Point of Care 176 mg/dL (70-110)
[2021-04-15] MEDS: fluoxetine 20 mg Capsule PO (11:51)
[2021-04-15] MEDS: levothyroxine 50 mcg Tablet PO (11:51)
[2021-04-15] MEDS: metformin 500 mg Tablet 1000 MG PO ×2 (11:51→17:04)
[2021-04-15 14:00] VITALS: BP 150/84; PULSE 78; RESP 16; TEMP 36.6; O2SAT 93
--- NOTE | 2021-04-15 14:09 | PC.NURSE ---
Patient asked to speak to nurse in her room. Patient reported she has had a back injury and has difficulty wiping her bottom when she has a bowel movement, at home uses a long handled cleaning aid and needs one here. Called OT, left message of patient need.
[2021-04-15 16:31] LABS: Glucose Point of Care 162 mg/dL (70-110)
[2021-04-15 20:05] VITALS: BP 129/79; PULSE 83; RESP 17; O2SAT 97
[2021-04-15] MEDS: trazodone 50 mg Tablet PO (20:24)
--- NOTE | 2021-04-15 20:25 | PC.NURSE ---
pt requested sleep med, trazodone 50mg given.
[2021-04-15 20:30] LABS: Glucose Point of Care 153 mg/dL (70-110)
--- NOTE | 2021-04-15 22:00 | PC.NURSE ---
pt resting quietly with both eyes closed.
[2021-04-16 06:00] VITALS: BP 131/86; PULSE 90; RESP 15; O2SAT 99
[2021-04-16] MEDS: levothyroxine 50 mcg Tablet PO (06:42)
[2021-04-16 07:14] LABS: Glucose Point of Care 164 mg/dL (70-110)
[2021-04-16] MEDS: insulin lispro 100 unit/1 mL SUBCUT ×4 (09:17→20:57)
[2021-04-16] MEDS: metformin 500 mg Tablet 1000 MG PO ×2 (09:17→18:47)
[2021-04-16 09:18] VITALS: BP 131/86
[2021-04-16] MEDS: fluoxetine 20 mg Capsule PO (09:18)
[2021-04-16] MEDS: losartan 50 mg Tablet PO (09:18)
[2021-04-16 11:33] LABS: Glucose Point of Care 189 mg/dL (70-110)
[2021-04-16 14:00] VITALS: BP 139/81; PULSE 90; RESP 15; TEMP 36.7; O2SAT 99
[2021-04-16 16:31] LABS: Glucose Point of Care 166 mg/dL (70-110)
--- NOTE | 2021-04-16 17:40 | P.NPUPN_ITS ---
Subjective NPU Subjective: Interval history: Patient presents today seeming to be out of the crisis that she found her self in and working with the treatment team for follow-up. Since he is now not committed to major changes but looks to return to [facility] for basic follow-up and is going to attempt sobriety by willpower. We had a discussion about the need sober living treatment to manage her sobriety and she seems somewhat ambivalent. We discussed the likelihood of discharge in the next 48 hours. Mental Status Exam MSE Comments: This is an obese, white female, in hospital scrubs with limited grooming and eye contact. No abnormal movements. Cooperative with exam in no acute distress. Speech was slightly decreased rate and volume. Mood described as better; affect congruent. Thought process, organized. Thought content: patient denied any suicidal or homicidal ideation, there were no delusions reported or noted, patient denied any auditory or visual hallucinations. Attention, concentration, and memory appear intact but none were formally tested. She is alert and oriented times three. Insight and judgment appear limited. Impulse control is impaired. Vitals/I&O/Wt Last Vital Signs Temp 98.0 F 04/16/21 14:00 Pulse 90 04/16/21 14:00 Resp 17 04/16/21 21:40 BP 139/81 04/16/21 14:00 Pulse Ox 99 04/16/21 14:00 Data NPU : 04/14/21 13:08 04/14/21 13:08 A&P Additional A&P Information (1) Suicide attempt: (2) Acute psychosis: (3) Polysubstance abuse: (4) Pain management contract signed: (5) Vulvovaginal candidiasis: (6) Skin yeast infection: (7) Dyslipidemia: (8) Morbid obesity with BMI of 60.0-69.9, adult: (9) Chronic diarrhea: (10) Hypothyroid: (11) Generalized anxiety disorder with panic attacks: (12) Nicotine dependence, cigarettes, with unspecified nicotine-induced disorders: (13) Type 2 diabetes mellitus, with long-term current use of insulin: (14) Essential hypertension: (15) Chronic low back pain: Additional A&P Information This is a 36-year-old, white female, with no significant mental health history t hat she has shared, but chart review suggests that she may be confused with follow up at [facility] noted in her chart, with history of depression and drug addiction. 1. Continue current medication. 2. Encourage individual, group, and milieu therapy. 3. Continue q-15 minute checks for safety. 4. Recommend sober living treatment at the highest level of care to which the patient is willing to commit. Involuntary Hold Information 96 Hour Hold: 96 Hour Involuntary Admission: Yes 96 Hour Hold Ending Date: 04/20/21 96 Hour Hold Ending Time: 00:01 Attestations NPU Medical Necessity Statement*: Inpatient hospitalization is medically necessary and the clinically appropriate intervention, at this time. We will monitor medications and make changes as indicated. Likely length of stay is 1-3 days. Coding Level of Care Code Acute Precinct Captain for Soham Morales
[2021-04-16 20:44] LABS: Glucose Point of Care 202 mg/dL (70-110)
[2021-04-16 21:40] VITALS: RESP 17
[2021-04-17] MEDS: levothyroxine 50 mcg Tablet PO (05:30)
[2021-04-17 06:00] VITALS: RESP 16
[2021-04-17 06:56] LABS: Glucose Point of Care 145 mg/dL (70-110)
[2021-04-17 08:18] VITALS: BP 139/81
[2021-04-17] MEDS: metformin 500 mg Tablet 1000 MG PO ×2 (08:18→17:53)
[2021-04-17] MEDS: losartan 50 mg Tablet PO (08:18)
[2021-04-17] MEDS: fluoxetine 20 mg Capsule PO (08:18)
[2021-04-17] MEDS: insulin lispro 100 unit/1 mL SUBCUT ×3 (08:18→18:18)
[2021-04-17 11:29] LABS: Glucose Point of Care 212 mg/dL (70-110)
[2021-04-17 14:00] VITALS: BP 120/67; PULSE 75; RESP 18; TEMP 36.6; O2SAT 97
--- NOTE | 2021-04-17 16:55 | P.NPUPN_ITS ---
Subjective NPU Subjective: Interval history: Patient presents today denying any lingering thoughts of harm to herself. She was able to talk about her addiction but feels optimistic that she can stop using now as she has in the past without any rigid or structured or intensive substance abuse treatment programming. She has agreed to return to [facility] and reports that she is tolerating her medications well and reports a desire to discharge. We discussed the risk benefits and alternatives of discharge in the next 48 hours. Mental Status Exam MSE Comments: This is an obese, white female, in hospital scrubs with adequate grooming and eye contact. No abnormal movements. Cooperative with exam in no ac iqugmiut distress. Speech was more normal rate and volume. Mood described as better; affect congruent. Thought process, organized. Thought content: patient denied any suicidal or homicidal ideation, there were no delusions reported or noted, patient denied any auditory or visual hallucinations. Attention, concentration, and memory appear intact but none were formally tested. She is alert and oriented times three. Insight and judgment appear limited. Impulse control is limited. Vitals/I&O/Wt Last Vital Signs Temp 98 F 04/17/21 14:00 Pulse 68 04/17/21 21:18 Resp 16 04/17/21 21:18 BP 119/80 04/17/21 21:18 Pulse Ox 96 04/17/21 21:18 Data NPU : 04/14/21 13:08 04/14/21 13:08 A&P Additional A&P Information (1) Suicide attempt: (2) Acute psychosis: (3) Polysubstance abuse: (4) Pain management contract signed: (5) Vulvovaginal candidiasis: (6) Skin yeast infection: (7) Dyslipidemia: (8) Morbid obesity with BMI of 60.0-69.9, adult: (9) Chronic diarrhea: (10) Hypothyroid: (11) Generalized anxiety disorder with panic attacks: (12) Nicotine dependence, cigarettes, with unspecified nicotine-induced disorders: (13) Type 2 diabetes mellitus, with long-term current use of insulin: (14) Essential hypertension: (15) Chronic low back pain: Additional A&P Information This is a 36-year-old, white female, with no significant mental health history that she has shared, but chart review suggests that she may be confused with follow up at [facility] noted in her chart, with history of depression and drug addiction. 1. Continue current medication. 2. Encourage individual, group, and milieu therapy. 3. Continue q-15 minute checks for safety. 4. Recommend sober living treatment at the highest level of care to which the patient is willing to commit. The patient is not interested in intensive drug and alcohol treatment unless she fails in her attempt to just stop using. 5. Likely discharge tomorrow. Involuntary Hold Information 96 Hour Hold: 96 Hour Involuntary Admission: Yes 96 Hour Hold Ending Date: 04/20/21 96 Hour Hold Ending Time: 00:01 Attestations NPU Medical Necessity Statement*: Inpatient hospitalization is medically necessary and the clinically appropriate intervention, at this time. We will monitor medications and make changes as indicated. Likely length of stay is 1-2 days. Coding Level of Care Code Acute Weatherization Specialist for Soham Morales
[2021-04-17 18:10] LABS: Glucose Point of Care 208 mg/dL (70-110)
[2021-04-17 21:03] LABS: Glucose Point of Care 181 mg/dL (70-110)
[2021-04-17 21:18] VITALS: BP 119/80; PULSE 68; RESP 16; O2SAT 96
[2021-04-18] MEDS: levothyroxine 50 mcg Tablet PO (05:54)
[2021-04-18 06:00] VITALS: BP 134/87; PULSE 78; RESP 15; O2SAT 100
[2021-04-18 07:38] LABS: Glucose Point of Care 191 mg/dL (70-110)
[2021-04-18 08:45] VITALS: BP 134/87
[2021-04-18] MEDS: fluoxetine 20 mg Capsule PO (08:45)
[2021-04-18] MEDS: metformin 500 mg Tablet 1000 MG PO (08:45)
[2021-04-18] MEDS: losartan 50 mg Tablet PO (08:45)
[2021-04-18] MEDS: nystatin powder 15 gm Btl 1 APPLIC TOPICAL (08:48)
[2021-04-18] MEDS: neomycin-poly-bacitracin oint 28 gm 1 APPLIC TOPICAL (08:48)
--- NOTE | 2021-04-18 10:28 | W.PM.NPUDCS ---
Diagnoses at Discharge Discharge Diagnosis (1) Suicide attempt: Status: Acute (2) Acute psychosis: Status: Acute (3) Polysubstance abuse: Status: Acute (4) Pain management contract signed: Status: Acute (5) Vulvovaginal candidiasis: Status: Acute (6) Skin yeast infection: Status: Acute (7) Dyslipidemia: Status: Acute Permanent problem details: Diagnosed in 2016 and is currently on medication managed by her primary care provider (8) Morbid obesity with BMI of 60.0-69.9, adult: Status: Acute (9) Chronic diarrhea: Status: Acute (10) Hypothyroid: Status: Chronic Permanent problem details: Diagnosed in 2016 and is currently managed by her primary care provider. Does not have an chemical etch operator (11) Generalized anxiety disorder with panic attacks: Status: Acute (12) Nicotine dependence, cigarettes, with unspecified nicotine-induced disorders: Status: Chronic (13) Type 2 diabetes mellitus, with long-term current use of insulin: Status: Chronic Permanent problem details: Diagnosed in 2007 and is currently on medication managed by her primary care provider. Does not have an chemical etch operator. (14) Essential hypertension: Status: Chronic Permanent problem details: Diagnosed in 2016 and is currently on medication managed by her primary care provider. Has no survey research analyst (15) Chronic low back pain: Status: Chronic Permanent problem details: Since about 2014 and currently take ibuprofen. Qualifiers: Back pain laterality: bilateral Sciatica presence: without sciatica Qualified Code(s): M54.5 - Low back pain; G89.29 - Other chronic pain Reason for Visit Reason for Visit: DRUG INGESTION Brief History: History of Present Illness Asia Calderon is a 36 year old female who presented to the ED with the following report: Chief Complaint: Psychiatric Symptoms Stated Complaint: DRUG INGESTION Time Seen by Provider: 04/14/21 12:16 History of Present Illness: HPI Narrative: Ms. Calderon is a 36-year-old lady with history of polysubstance abuse, hypertension, hyperlipidemia, hypothyroidism, and insulin-dependent diabetes who presents to the emergency department due to drug ingestion. She reports yesterday she was high on meth and broke up with her significant other. This caused her to feel depressed and suicidal. Approximately 1 hour prior to arrival she took some amount of her medications. She variably reports the number and what medication. To me the patient endorses taking approximately 6 to 7 tablets of one of her blood pressure medications though she is unsure of which one. She reports that she did this with the intention of self-harm and not wanting to be here anymore . she may have told EMS that she took her levothyroxine. The patient clinically appears that she is withdrawing or intoxicated with amphetamines and history is somewhat limited. Otherwise denies medical complaints. No other known specific exacerbating, alleviating, or provoking factors. Denies similar episodes in the past Supplemental information provided by the patient's mother is that the patient has been living in [facility] with individuals who also abuses drugs, they do not currently have heat or electricity so she was moved with a girlfriend to a trailer however has also struggled to take care of herself due to drug habit. She keeps approximately 1 week of medications in a pill container and took up to 4 days worth of medications though it is still unclear exactly which ones she took. She was admitted to the neuropsychiatric unit for definitive treatment of those issues. She presents today reporting that she has never been in a psychiatric hospital, she has never had outpatient services, and she has never had medication management, however, she has been on Prozac, in the past, and detailed exploration of records from pharmacies actually has her not having taken it for months. She said she thought she had been up to 40 milligrams. She reports she smokes cigarettes occasionally, drinks alcohol occasionally, has marijuana occasionally, and has had significant struggles with methamphetamine. She denies ever having been to a drug rehabilitation or having a DUI. She reports that things got problematic for her recently, when she and her girlfriend were fighting, and she started having suicidal thoughts, and reports that she was thinking about, or trying, to hang herself. She reports that they broke up and she took some pills. She denies ever having suicide attempts, in the past. She denies past self-injurious behavior. She reports that she is very impulsive. We discussed the risks, benefits, and alternatives of her increasing the Prozac, if we are able to determine that it is actually a medication she is taking but, otherwise, we would restart the prozac at 20 milligrams po qam, and she understood and agreed to proceed as documented this note. PSYCHIATRIC HISTORY: As above. SUBSTANCE ABUSE HISTORY: As above. FAMILY HISTORY: She denies any mental health or addiction issues in her family. DEVELOPMENTAL HISTORY: The patient denies any issues with her mother?s or delivery of her. She learned to walk and talk and met all developmental milestones on time. The patient denies speech therapy, learning support, emotional support, or special education classes. PSYCHOSOCIAL HISTORY: The patient reports that her mother and father were together when she was born, but that she is the only product of that union. She reports that her mom had three other children, other than her, and she believes her dad had some kids, but she is not sure. She reports that her childhood was pretty good and denies emotional, physical, or sexual abuse. She denied any traumas is her life. She graduated from high school but did not graduate from college. She endorses being bisexual with her longest relationship being five years. She has never been , and she never had children. She has never been in the . She denies any latter-day belief system. She reports that she has a limited work history and currently lives in a camper. LEGAL HISTORY: She reports that she has never been to retirement or had any serious legal peril. MEDICAL HISTORY: Denied. She does have obesity per her BMI. Please see ED note for additional details. Hospital Course Hospital Course She slowly acclimated to the individual, group and milieu therapies provided. She was started on Prozac 20 mg p.o. every morning and her other medications were continued. She was somewhat ambivalent about facing some of her challenges including addiction issues. She did show modest improvement during her stay and was able to contract for safety prior to discharge outside of the hospital. During the hospitalization, patient had routine laboratory studies which were within normal limits except for few outliers. Additionally there was a general medical evaluation which was also within normal limits and revealed no new acute processes. Discharge Summary: At the time of discharge, she denied psychosis or lethality. Mood and anxiety were well managed. Patient endorsed a plan to avoid all drugs of abuse and follow-up with the aftercare recommendations of the treatment team. Patient was evaluated and deemed to be absent credible lethality, and had achieved the maximum benefit from an inpatient hospitalization, so was discharged. Involuntary Hold Information 96 Hour Hold: 96 Hour Involuntary Admission: Yes 96 Hour Hold Ending Date: 04/20/21 96 Hour Hold Ending Time: 00:01 Mental Status Exam MSE Comments: This is a morbidly obese, white female, in hospital scrubs with adequate grooming and eye contact. No abnormal movements. Cooperative with exam in no acute distress. Speech was more normal rate and volume. Mood described as better; affect congruent. Thought process, organized. Thought content: patient denied any suicidal or homicidal ideation, there were no delusions reported or noted, patient denied any auditory or visual hallucinations. Attention, concentration, and memory appear intact but none were formally tested. She is alert and oriented times three. Insight and judgment appear limited. Impulse control is limited. Discharge Data Data Completed and Pending: Labs from last 24 hours 04/18/21 04/17/21 04/17/21 07:35 20:59 17:55 POC Glucose 191 H 181 H 208 H 04/17/21 11:26 POC Glucose 212 H Vitals: Last Vital Signs Temp 98 F 04/17/21 14:00 Pulse 78 04/18/21 06:00 Resp 15 04/18/21 06:00 BP 134/87 04/18/21 08:45 Pulse Ox 100 04/18/21 06:00 Discharge Plan Discharge Patient Disposition: Home Condition: Stable Prescriptions: Continued insulin lispro [Humalog KwikPen Insulin] 100 unit/mL insulin pen 15 unit SUBCUT TID Qty: 15 RF: 2 (DME) blood-glucose meter [Accu-Chek Letha Plus Meter] Misc See Rx Instructions .ROUTE .MEDSUPPLY Qty: 1 RF: 0 (DME) pen needle, diabetic [1st Tier Unifine Pentips] 32 gauge x 5/32 needle See Rx Instructions .ROUTE .MEDSUPPLY Qty: 200 RF: 1 (DME) Accu-Chek Letha Plus test strp Strip See Rx Instructions .ROUTE .MEDSUPPLY Qty: 200 RF: 3 (DME) lancets [Accu-Chek Fastclix Lancet Drum] Misc See Rx Instructions .ROUTE .MEDSUPPLY Qty: 200 RF: 2 Victoza 3-Donnie 0.6 mg/0.1 mL (18 mg/3 mL) pen injector 1.8 mg SUBCUT Q24H Qty: 9 RF: 2 levothyroxine 50 mcg capsule 50 mcg PO DAILY Qty: 30 RF: 5 verapamil 80 mg tablet 80 mg PO TID Qty: 90 RF: 5 atorvastatin 20 mg tablet 20 mg PO DAILY Qty: 30 RF: 2 losartan 50 mg tablet 50 mg PO DAILY Qty: 90 RF: 1 metformin 1,000 mg tablet 1,000 mg PO BID MDD see pharmacy comment Qty: 60 RF: 5 Lantus Solostar U-100 Insulin 100 unit/mL (3 mL) insulin pen 50 unit SUBCUT DAILY Qty: 15 RF: 0 No Action hydroxyzine HCl 50 mg tablet 50 mg PO QID PRN (Reason: anxiety) Qty: 120 RF: 1 fluoxetine 40 mg capsule 80 mg PO DAILY Qty: 60 RF: 1 trazodone 150 mg tablet 450 mg PO .HS MDD see pharmacy comment Qty: 90 RF: 2 buprenorphine-naloxone 8-2 mg tablet, sublingual 1 tab sublingual DAILY Qty: 30 RF: 0 Discharge Orders: Discharge Order (Routine); Ordered 04/18/21 Ordered By: Justin Bender Referrals: [facility] [Outside] - 04/25/21 12:15 pm (Appointment with Dr. Devries April 25 at 12:15pm ) Agnieszka Aguilar FNP [Primary Care Provider] - Discharge Diet: Diabetic Discharge Activity: Resume usual activity Patient Instructions: Opioid Safety Discharge Attestations NPU Time Spent in Discharge Care*: less than 30 min Specific Discharge Activities: Specific discharge activities: educating patient, discussing with bilingual case manager/social workers/dc planners, documenting/other paperwork and evaluating patient/reviewing data Coding Level of Care Code Acute Chg FW DC note Diagnoses Suicide attempt T14.91XA Acute psychosis F23 Polysubstance abuse F19.10 Pain management contract signed Z02.89 Vulvovaginal candidiasis B37.3 Skin yeast infection B37.2 Dyslipidemia E78.5 Morbid obesity with BMI of 60.0-69.9, adult E66.01; Z68.44 Chronic diarrhea K52.9 Hypothyroid E03.9 Generalized anxiety disorder with panic attacks F41.1; F41.0 Nicotine dependence, cigarettes, with unspecified nicotine-induced disorders F17.219 Type 2 diabetes mellitus, with long-term current use of insulin E11.9; Z79.4 Essential hypertension I10 Chronic low back pain M54.5; G89.29 Back pain laterality: bilateral Sciatica presence: without sciatica
[2021-04-18] MEDS: insulin lispro 100 unit/1 mL SUBCUT (10:51)
[2021-04-18 11:13] VITALS: BP 134/87; PULSE 78; RESP 15; TEMP 36.6; O2SAT 100
== END 2021-04-18 11:24 | disposition home or self-care (01) | DRG 885 ==
LOC: ER 18:28 → NP 19:37
PROVIDERS: Admitting Provider Psychiatry & Neurology Psychiatry; Emergency Provider Emergency Medicine; PCP Nurse Practitioner Family; Visit Provider Psychiatry & Neurology Psychiatry
DX: F23 Brief psychotic disorder (principal); R45.851 Suicidal ideations; Z68.44 Body mass index [BMI] 60.0-69.9, adult; F15.90 Other stimulant use, unspecified, uncomplicated; I10 Essential (primary) hypertension; E03.9 Hypothyroidism, unspecified; E78.5 Hyperlipidemia, unspecified; E11.9 Type 2 diabetes mellitus without complications; Z79.4 Long term (current) use of insulin; F32.A Depression, unspecified; G89.29 Other chronic pain; M54.50 Low back pain, unspecified; F17.210 Nicotine dependence, cigarettes, uncomplicated; F12.90 Cannabis use, unspecified, uncomplicated; Z63.0 Problems in relationship with spouse or partner; E66.01 Morbid (severe) obesity due to excess calories; Z79.84 Long term (current) use of oral hypoglycemic drugs; Z79.899 Other long term (current) drug therapy; F41.1 Generalized anxiety disorder
CPT/HCPCS: 36415; 36416; 80053; 80306; 80307; 81025; 82962; 84443; 85025; 93005; 96372; 97150; 97165; 99285; J1815; J2060

== ENCOUNTER → 2021-04-25 12:16 | Outpatient (BNVA) | payer MEDICAID, SELFPAY | PROVIDERS: PCP Nurse Practitioner Family; Visit Provider Psychiatry & Neurology Psychiatry | DX: F41.1 Generalized anxiety disorder (principal); F41.0 Panic disorder [episodic paroxysmal anxiety]; G47.00 Insomnia, unspecified; F15.20 Other stimulant dependence, uncomplicated; F17.219 Nicotine dependence, cigarettes, with unspecified nicotine-induced disorders | CPT/HCPCS: 99214 ==

== ENCOUNTER → 2021-04-27 11:41 | Outpatient (BNVA) | payer MEDICAID, SELFPAY | PROVIDERS: PCP Nurse Practitioner Family; Visit Provider Psychiatry & Neurology Psychiatry | DX: F41.1 Generalized anxiety disorder (principal); F41.0 Panic disorder [episodic paroxysmal anxiety]; G47.00 Insomnia, unspecified; F15.20 Other stimulant dependence, uncomplicated; F17.219 Nicotine dependence, cigarettes, with unspecified nicotine-induced disorders | CPT/HCPCS: 80307; 99214 ==

== ENCOUNTER → 2021-05-25 12:05 | Outpatient (BNVA) | payer MEDICAID, SELFPAY | PROVIDERS: PCP Nurse Practitioner Family; Visit Provider Psychiatry & Neurology Psychiatry | DX: F41.1 Generalized anxiety disorder (principal); F41.0 Panic disorder [episodic paroxysmal anxiety]; F15.20 Other stimulant dependence, uncomplicated; F17.219 Nicotine dependence, cigarettes, with unspecified nicotine-induced disorders; Z79.899 Other long term (current) drug therapy | CPT/HCPCS: 80307; 99214 ==

== ENCOUNTER → 2021-06-22 12:48 | Outpatient (BNVA) | payer MEDICAID, SELFPAY | PROVIDERS: PCP Nurse Practitioner Family; Visit Provider Psychiatry & Neurology Psychiatry | DX: F41.0 Panic disorder [episodic paroxysmal anxiety] (principal); F17.219 Nicotine dependence, cigarettes, with unspecified nicotine-induced disorders; F41.1 Generalized anxiety disorder; F15.20 Other stimulant dependence, uncomplicated | CPT/HCPCS: 80307; 99214 ==

== ENCOUNTER → 2021-07-24 14:12 | Outpatient (BNVA) | payer MEDICAID, SELFPAY | PROVIDERS: PCP Nurse Practitioner Family; Visit Provider Psychiatry & Neurology Psychiatry | DX: F15.20 Other stimulant dependence, uncomplicated (principal); Z79.899 Other long term (current) drug therapy | CPT/HCPCS: 80307 ==

== ENCOUNTER → 2021-09-18 15:07 | Outpatient (BNVA) | payer MEDICAID, SELFPAY | PROVIDERS: PCP Nurse Practitioner Family; Referring Provider Nurse Practitioner Family; Visit Provider Orthopaedic Surgery | DX: S42.251A Displaced fracture of greater tuberosity of right humerus, initial encounter for closed fracture (principal); W17.89XA Other fall from one level to another, initial encounter; F17.200 Nicotine dependence, unspecified, uncomplicated | CPT/HCPCS: 73030; 99203; 99204 ==

== ENCOUNTER 2022-01-02 16:01 | Outpatient (CLI) | payer MEDICAID, SELFPAY ==
--- NOTE | 2022-01-02 16:00 | CT_ITS ---
WS: [id number] NONCONTRAST CT RIGHT SHOULDER TECHNIQUE: Noncontrast CT RIGHT shoulder with coronal and sagittal reformatted images. CLINICAL INFORMATION: S42.251A - Displaced fracture of greater tuberosity of ri... COMPARISON: Radiograph September 18, 2021 DLP: 962.[address] scans at [facility] use at least one of these dose optimization techniques: automated e xposure control; mA and/or kV adjustment per patient size (includes targeted exams where dose is matc hed to clinical indication); or iterative reconstruction. FINDINGS: Normal AC joint. Mild downsloping of the acromion. Subacromial space is relatively well-preserved. No rmal glenohumeral joint. Comminuted minimally displaced fractures involving the greater tuberosity wi th fragmentation. No significant healing compared to September 18, 2021. 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 Proximal humeral shaft is normal. Normal lesser tuberosity. Normal scapula. Normal coracoid. Distal clavicle appears normal. Partially visualized RIGHT lung is well aerated. No evidence of Hill-Sachs d eformity. No glenoid fractures. Biceps tendon appears present within the bicipital groove. No axillar y lymphadenopathy. CT/CT shoulder RT wo con* [id number] IMPRESSION: 1. Comminuted fractures of the greater tuberosity with irregularity and fragme ntation. 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 2. Minimal degenerative arthritis AC joint. Mild downsloping acromion. Subacro mial space is preserved. 3. Normal glenoid and scapula. 4. No other visualized fractures
== END 2022-01-02 16:02 | disposition home or self-care (01) ==
LOC: RAD 16:06
PROVIDERS: PCP Nurse Practitioner Family; Visit Provider Orthopaedic Surgery
DX: S42.251A Displaced fracture of greater tuberosity of right humerus, initial encounter for closed fracture (principal); X58.XXXA Exposure to other specified factors, initial encounter; M19.011 Primary osteoarthritis, right shoulder
CPT/HCPCS: 73200

== ENCOUNTER → 2022-01-22 12:46 | Outpatient (BNVA) | payer MEDICAID, SELFPAY | PROVIDERS: PCP Nurse Practitioner Family; Visit Provider Orthopaedic Surgery | DX: S42.251A Displaced fracture of greater tuberosity of right humerus, initial encounter for closed fracture (principal); X58.XXXA Exposure to other specified factors, initial encounter | CPT/HCPCS: 99213 ==

== ENCOUNTER 2022-03-17 14:27 | Emergency (ER) | payer MEDICAID, SELFPAY ==
[2022-03-17 14:31] VITALS: BP 161/107; PULSE 90; RESP 15; O2SAT 93; BMI 59.5
[2022-03-17 14:38] VITALS: BP 161/107; PULSE 90; RESP 15; TEMP 36.7; O2SAT 93
--- NOTE | 2022-03-17 14:44 | W.ED.BACK ---
HPI - Back Pain/Injury General: Chief Complaint: Back Pain/Injury Stated Complaint: Lower back pain Time Seen by Provider: 03/17/22 14:37 Source: patient Mode of arrival: ambulatory Limitations: no limitations History of Present Illness: 37-year-old female presents to the ER today for low back pain x1 week. Patient reports a history of herniated disc however that was about a year ago and things have been going well. Patient denies any recent injury. Denies any recent heavy lifting or change in daily routines. Patient reports the pain is in her middle of the low back. There is no radiating pain. No numbness no tingling. Patient denies any neurological deficits or loss of bowel or bladder control. Patient has been taking ibuprofen and Tylenol at home for the pain. Review of Systems General: Reports: 10 or more systems reviewed and unremarkable except in HPI and below PFSH ED PFSH: Medical History Anxiety and depression Diagnosed in 2016 and has been on medication. Currently managed by Dr. Devries in [facility]. Chronic low back pain Since about 2014 and currently take ibuprofen. Dyslipidemia Diagnosed in 2016 and is currently on medication managed by her primary care provider Essential hypertension Diagnosed in 2016 and is currently on medication managed by her primary care provider. Has no senior service aide Hypothyroid Diagnosed in 2016 and is currently managed by her primary care provider. Does not have an cell plasterer No pertinent past medical history Denies asthma, seizures, DVT/PE PCP: Dr. Stanley Pain management contract signed Type 2 diabetes mellitus, with long-term current use of insulin Diagnosed in 2007 and is currently on medication managed by her primary care provider. Does not have an cell plasterer. Surgical History H/O hand surgery Right hand for an infection in 2019 H/O retained foreign body fully removed (12/15/19) Left upper lip Family History Grandmother Diabetes maternal Family/Other Diabetes maternal uncle Denies family history of Colon cancer Ovarian cancer Heart disease Hyperlipidemia Breast cancer Anesthesia complication Bleeding disorder Hypertension Uterine cancer Thyroid condition Stroke Social History Smoking and tobacco status: current every day smoker cigarettes Packs smoked per day: 0.15 Years cigarettes smoked: 5 Quit status (tobacco): has tried quititng Number of times tried to quit tobacco: 3 Second hand smoke exposure: Yes Smoking risk assessment/counseling performed?: No Alcohol intake: current Alcohol intake frequency: holidays/special occasions only Alcohol type: other Desire information about alcohol rehabilitation?: No Counseling given: No Desire information about substance/drug rehabilitation?: No Counseling given: No Household members: significant other Marital status: Single Current occupational status: disabled History of recent travel: No Current gender identity: Female Female Reproductive History: Date of last menstrual period: 04/05/21 Physical Exam Const: COMMON NORMALS: no acute distress, patient oriented x3, no limitations, alert and well nourished; negative for average body habitus (morbid obesity) Resp: COMMON NORMALS: normal respiratory effort EFFORT & INSPECTION: Yes able to speak in complete sentences Cardio: COMMON NORMALS: regular rate and regular rhythm RATE: regular rate RHYTHM: regular rhythm Back/Pelvis: OTHER: Normal range of motion. Mild tenderness palpation over lumbar spinous processes however no muscle spasms, or paraspinal muscle tenderness noted. Extremity: COMMON NORMALS: normal to inspection, full ROM and no pedal edema Neuro: COMMON NORMALS: patient oriented x3 SENSORIUM/ORIENTATION: Yes alert Psych: COMMON NORMALS: mental status grossly normal, Normal thought process present and cooperative THOUGHT PROCESS: Normal thought process present Skin: COMMON NORMALS: no rashes or lesions noted and no wounds GENERAL SKIN EXAM: no rashes or lesions noted Course ED course: Patient presents for low back pain x1 week. She has a history of a herniated disc that has been well for about a year now. Patient denies any known injury. She has no neurological deficits at this time. No radiating pain. Physical exam is performed in the ER and unremarkable. No imaging recommended given no new injury. Vital Signs: Vital signs: Vital Signs Temperature 98.1 F 03/17/22 14:38 Pulse Rate 90 03/17/22 14:38 Respiratory Rate 15 03/17/22 14:38 Blood Pressure 161/107 03/17/22 14:38 Pulse Oximetry 93 03/17/22 14:38 Oxygen Delivery Me thod 03/17/22 14:38 MDM - Back Pain/Injury Medical Decision Making Patient likely has an acute exacerbation of chronic low back pain. We will treat conservatively at this time. We will do anti-inflammatory, muscle relaxer, steroid. We will do a short burst of steroid as patient is a diabetic and should expect her blood sugars to be slightly elevated for the next several days. Would recommend warm, moist heat. Stretching recommended. Topical muscle rub recommended. Follow-up with PCP in 7 to 10 days if no improvement. Return to the ER with new or worsening symptoms. Patient verbalized understanding and was in agreement with the treatment plan. Critical Care Time Critical Care Time: Critical Care Time: No Discharge Plan Discharge Patient Disposition: Home Clinical Impression: Acute exacerbation of chronic low back pain Condition: Stable Prescriptions: New tizanidine 4 mg capsule 4 mg PO BID PRN (Reason: muscle spasticity) 5 Days Qty: 10 0RF prednisone 20 mg tablet 40 mg PO DAILY 4 Days Qty: 8 0RF ketorolac 10 mg tablet 10 mg PO Q8H PRN (Reason: pain) 3 Days Qty: 9 0RF No Action insulin lispro [Humalog KwikPen Insulin] 100 unit/mL insulin pen 15 unit SUBCUT TID Qty: 15 2RF Rx Instructions: Please dispense needle tips as well (DME) blood-glucose meter [Accu-Chek Letha Plus Meter] Misc See Rx Instructions .ROUTE .MEDSUPPLY Qty: 1 0RF Rx Instructions: As directed (DME) pen needle, diabetic [1st Tier Unifine Pentips] 32 gauge x 5/32 needle See Rx Instructions .ROUTE .MEDSUPPLY Qty: 200 1RF Rx Instructions: 5 daily (DME) Accu-Chek Letha Plus test strp Strip See Rx Instructions .ROUTE .MEDSUPPLY Qty: 200 3RF Rx Instructions: 4 daily (DME) lancets [Accu-Chek Fastclix Lancet Drum] Misc See Rx Instructions .ROUTE .MEDSUPPLY Qty: 200 2RF Rx Instructions: 4 daily hydroxyzine HCl 50 mg tablet 50 mg PO QID PRN (Reason: anxiety) Qty: 120 2RF mirtazapine 30 mg tablet 30 mg PO .HS Qty: 30 2RF fluoxetine 40 mg capsule 80 mg PO DAILY Qty: 60 2RF cyclobenzaprine 10 mg tablet 10 mg PO TID PRN (Reason: muscle spasm) 7 Days Qty: 20 0RF Victoza 3-Donnie 0.6 mg/0.1 mL (18 mg/3 mL) pen injector 1.8 mg SUBCUT Q24H Qty: 9 2RF Rx Instructions: Please dispense needle tips as well levothyroxine 50 mcg capsule 50 mcg PO DAILY Qty: 30 5RF verapamil 80 mg tablet 80 mg PO TID Qty: 90 5RF atorvastatin 20 mg tablet 20 mg PO DAILY Qty: 30 2RF losartan 50 mg tablet 50 mg PO DAILY Qty: 90 1RF metformin 1,000 mg tablet 1,000 mg PO BID MDD see pharmacy comment Qty: 60 5RF Lantus Solostar U-100 Insulin 100 unit/mL (3 mL) insulin pen 50 unit SUBCUT DAILY Qty: 15 0RF Discharge Orders: Discharge ED (Routine); Ordered 03/17/22 Ordered By: Chichi Shook Referrals: Agnieszka Aguilar [employer] [Primary Care Provider] - Discharge Diet: Usual diet Discharge Activity: Increase activity as tolerated Patient Instructions: Opioid Safety, Pain Management Activity Restrictions/Additional Instructions: Take medications as prescribed. Follow-up with PCP in 10 to 14 days if no improvement. Warm, moist heat recommended. Topical muscle rub recommended but do not use with heat. Return to the ER with new or worsening symptoms. Coding Level of Care Code ED Senior Quality Assurance Engineer for Soham Morales
[2022-03-17 14:50] VITALS: PULSE 87; RESP 16; O2SAT 97
== END 2022-03-17 14:51 | disposition home or self-care (01) ==
PROVIDERS: Emergency Provider Physician Assistant; PCP Nurse Practitioner Family
DX: F17.210 Nicotine dependence, cigarettes, uncomplicated (principal); M54.50 Low back pain, unspecified; G89.29 Other chronic pain; E11.9 Type 2 diabetes mellitus without complications; Z79.4 Long term (current) use of insulin
CPT/HCPCS: 99284

== ENCOUNTER → 2023-01-23 16:09 | Outpatient (BNVA) | payer MEDICAID, SELFPAY | PROVIDERS: PCP Nurse Practitioner Family; Visit Provider Obstetrics & Gynecology | DX: Z20.2 Contact with and (suspected) exposure to infections with a predominantly sexual mode of transmission (principal); N89.8 Other specified noninflammatory disorders of vagina | CPT/HCPCS: 84315; 87491; 87591 ==

== ENCOUNTER → 2023-02-11 15:30 | Outpatient (BNVA) | payer MEDICAID, SELFPAY | PROVIDERS: PCP Nurse Practitioner Family; Visit Provider Obstetrics & Gynecology | DX: Z20.2 Contact with and (suspected) exposure to infections with a predominantly sexual mode of transmission (principal) | CPT/HCPCS: 87491; 87591 ==

== ENCOUNTER 2023-04-09 13:26 | Emergency (ER) | payer MEDICAID, SELFPAY ==
[2023-04-09 13:35] VITALS: BP 173/101; PULSE 78; RESP 17; TEMP 36.6; O2SAT 95; BMI 61.4
--- NOTE | 2023-04-09 13:44 | XRR_ITS ---
PROCEDURE INFORMATION: Exam: XR Right Hand Exam date and time: 04/09/2023 1:47 PM Age: 38 years old Clinical indication: Pain; Hand; Right; Additional info: Finger pain, infection TECHNIQUE: Imaging protocol: Radiologic exam of the right hand. Views: 3 or more views. COMPARISON: No relevant prior studies available. FINDINGS: Bones/joints: No fracture or acute osseous abnormality. No bone erosion or cortical bone destruction or periosteal bone reaction. Soft tissues: Mild soft tissue swelling. No soft tissue gas or radiopaque foreign body. XR/XR hand RT min 3V* [id number] IMPRESSION: No fracture or acute osseous abnormality.
--- NOTE | 2023-04-09 14:12 | W.ED.EXTPRO ---
HPI - Extremity Problem General: Chief complaint: Extremity Problem,Nontraumatic Stated complaint: right hand finger pain Time Seen by Provider: 04/09/23 14:08 History of Present Illness: Patient comes in today for complaints of discomfort to the ring finger on the right hand for the last 2 to 3 weeks with decreased mobility and range of motion. Patient also has a hangnail/ingrown nail to the third digit on the right hand that she do not know if it is causing problems with the hand. Minimal redness and swelling is noted to the hand. Patient has decreased range of motion of the ring finger. Cap refill and sensation is intact. Patient has a history of diabetes, depression, obesity, allergies, and high blood pressure. Associated symptoms: Deny chest pain or fever(s) Review of Systems General: Reports: 10 or more systems reviewed and unremarkable except in HPI and below Const: Denies: fever(s) Card: Denies: chest pain Resp: Denies: dyspnea Musc: Reports: extremity pain PFS ED PFSH: Medical History Anxiety and depression Diagnosed in 2016 and has been on medication. Currently managed by Dr. Devries in [facility]. Chronic low back pain Since about 2014 and currently take ibuprofen. Chronic recurrent major depressive disorder Dyslipidemia Diagnosed in 2016 and is currently on medication managed by her primary care provider Essential hypertension Diagnosed in 2016 and is currently on medication managed by her primary care provider. 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 Does not have an crew director No pertinent past medical history Denies asthma, seizures, DVT/PE PCP: Dr. Stanley Pain management contract signed Type 2 diabetes mellitus, with long-term current use of insulin Diagnosed in 2007 and is currently on medication managed by her primary care provider. Does not have an crew director. Surgical History H/O hand surgery Right hand for an infection in 2019 H/O retained foreign body fully removed (12/15/19) Left upper lip Family History Grandmother Diabetes maternal Family/Other Diabetes maternal uncle Denies family history of Colon cancer Ovarian cancer Heart disease Hyperlipidemia Breast cancer Anesthesia complication Bleeding disorder Hypertension Uterine cancer Thyroid condition Stroke Social History Smoking and tobacco/nicotine status: current every day tobacco/nicotine user cigarettes Packs smoked per day: 0.15 Years cigarettes smoked: 5 Quit status (tobacco/nicotine): has tried quititng Number of times tried to quit tobacco: 3 Second hand smoke exposure: Yes Alcohol intake: current Alcohol intake frequency: holidays/special occasions only Alcohol type: other Substance/Drug Use: former Date of last use: MARIJUANA- about 2 months. Meth 6 months. Household members: significant other Marital status: Single Current occupational status: disabled Current gender identity: Female Physical Exam Const: COMMON NORMALS: alert HENMT: COMMON NORMALS: normocephalic HEAD & SCALP: normocephalic Neck/C-Spine: COMMON NORMALS: full ROM Resp: COMMON NORMALS: normal respiratory effort Cardio: COMMON NORMALS: regular rate RATE: regular rate GI: COMMON NORMALS: non-tender Extremity: RIGHT UPPER EXTREMITY: Yes hand & digits (Superficial paronychia third digit, decreased range of motion fourth digit) Right hand and digits: Yes inspection, Yes palpation and Yes ROM exam Neuro: SENSORIUM/ORIENTATION: Yes alert Skin: COMMON NORMALS: turgor normal GENERAL SKIN EXAM: turgor normal Course Vital Signs: Vital signs: Vital Signs Temperature 98 F 04/09/23 13:35 Pulse Rate 78 04/09/23 13:35 Respiratory Rate 17 04/09/23 13:35 Blood Pressure 173/101 04/09/23 13:35 Pulse Oximetry 95 04/09/23 13:35 Oxygen Delivery Me thod Room Air 04/09/23 13:35 MDM - Extremity (Nontraumatic) Medical Decision Making Patient comes in for evaluation of decreased range of motion of the fourth digit on the right hand. Patient also is concerned about a fingernail infection to the third digit on the right hand. On exam there is no significant redness or swelling noted. Patient has decreased extension range of motion of the fourth digit of the right hand. Patient has tightness along the flexor tendon of the fourth digit. Differential diagnosis includes but not limited to arthritis, trigger finger, tenosynovitis, paronychia, sepsis. No signs of severe illness is noted. No signs of tenosynovitis is noted. Patient has drawing of the flexor tendon of the fourth digit suggesting a trigger finger. Patient also has a superficial paronychia to the third finger. There is minimal to no swelling or redness noted to the hand. We will go ahead and cover patient with Augmentin for her paronychia and mupirocin ointment due to patient's history of diabetes. For patient's trigger finger we will splint it and start her on a course of Celebrex for the next 10 days. Patient was instructed to wear the splint and then exercise the finger daily to help loosen up the tendon. Patient may need to have further evaluation by graphic specialist for injection of the trigger finger or recommendation for surgery. Lab Data Radiology Impressions Hand X-Ray 04/09/23 13:44 IMPRESSION: No fracture or acute osseous abnormality. All radiology interpretation(s) finalized by discharge Discharge Plan Discharge Patient Disposition: Home Clinical Impression: Trigger finger, right ring finger, Paronychia due to ingrown nail Condition: Stable Prescriptions: New amoxicillin-pot clavulanate 875-125 mg tablet 1 tab PO BID Qty: 10 0RF mupirocin 2 % ointment 1 applic topical BID Qty: 22 0RF celecoxib 200 mg capsule 200 mg PO BID Qty: 20 0RF No Action insulin lispro [Humalog KwikPen Insulin] 100 unit/mL insulin pen 15 unit SUBCUT TID Qty: 15 2RF Rx Instructions: Please dispense needle tips as well (DME) blood-glucose meter [Accu-Chek Letha Plus Meter] [facility] See Rx Instructions .ROUTE .MEDSUPPLY Qty: 1 0RF Rx Instructions: As directed (DME) pen needle, diabetic [1st Tier Unifine Pentips] 32 gauge x 5/32 needle See Rx Instructions .ROUTE .MEDSUPPLY Qty: 200 1RF Rx Instructions: 5 daily (DME) Accu-Chek Letha Plus test strp Strip See Rx Instructions .ROUTE .MEDSUPPLY Qty: 200 3RF Rx Instructions: 4 daily (DME) lancets [Accu-Chek Fastclix Lancet Drum] Misc See Rx Instructions .ROUTE .MEDSUPPLY Qty: 200 2RF Rx Instructions: 4 daily glipizide 10 mg tablet 10 mg PO DAILY fluoxetine 40 mg capsule 80 mg PO DAILY Qty: 60 2RF mirtazapine 30 mg tablet 30 mg PO .HS Qty: 30 2RF quetiapine [Seroquel] 50 mg tablet 50 mg PO TID Qty: 90 2RF cetirizine [Zyrtec] 10 mg tablet 10 mg PO DAILY PRN (Reason: allergy symptoms) Qty: 30 0RF nystatin 100,000 unit/gram cream 1 applic topical TID Qty: 30 6RF Rx Instructions: apply to vulva 2-3 x / day mometasone 0.1 % cream 1 applic topical BID Qty: 45 3RF Rx Instructions: apply to vulva 2-3 x / day Victoza 3-Donnie 0.6 mg/0.1 mL (18 mg/3 mL) pen injector 1.8 mg SUBCUT Q24H Qty: 9 2RF Rx Instructions: Please dispense needle tips as well levothyroxine 50 mcg capsule 50 mcg PO DAILY Qty: 30 5RF verapamil 80 mg tablet 80 mg PO TID Qty: 90 5RF atorvastatin 20 mg tablet 20 mg PO DAILY Qty: 30 2RF losartan 50 mg tablet 50 mg PO DAILY Qty: 90 1RF Lantus Solostar U-100 Insulin 100 unit/mL (3 mL) insulin pen 50 unit SUBCUT DAILY Qty: 15 0RF nystatin 100,000 unit/gram cream 1 applic topical BID Qty: 45 3RF Discharge Orders: Discharge ED (Routine); Ordered 04/09/23 Ordered By: Moshe Cooper Referrals: Amparo Espinoza MD [Primary Care Provider] - Discharge Diet: Usual diet Discharge Activity: Increase activity as tolerated Patient Instructions: Trigger Finger (ED) Activity Restrictions/Additional Instructions: For trigger finger wear splint to keep finger straight for the next 2 weeks. 2-3 times daily remove the splint and exercise the finger. Working the finger through its range of motion. Keep the splint in place otherwise. Take anti-inflammatory, celecoxib 200 mg twice a day for 10 days. This will help decrease inflammation along the tendon sheath to allow more frequent mobility. For the infected fingernail use antibiotic ointment twice a day until healed. Take oral antibiotic twice a day for 5 days. Drink plenty of water and fluids with medications. Follow-up with orthopedist for further evaluation and treatment of trigger finger. Return to ED for new concerns. Coding Level of Care Code ED Replenishment Buyer for Soham Morales
--- NOTE | 2023-04-10 08:53 | DCPLANNER ---
Referral was sent to ortho clinic on 04/10/23 at 0854. Clinic to contact patient.
== END 2023-04-09 15:15 | disposition home or self-care (01) ==
PROVIDERS: Emergency Provider Nurse Practitioner Family; PCP Family Medicine
DX: M65.341 Trigger finger, right ring finger (principal); L03.011 Cellulitis of right finger; F17.210 Nicotine dependence, cigarettes, uncomplicated; E78.5 Hyperlipidemia, unspecified; I10 Essential (primary) hypertension; E11.9 Type 2 diabetes mellitus without complications; Z79.4 Long term (current) use of insulin; Z79.84 Long term (current) use of oral hypoglycemic drugs
CPT/HCPCS: 73130; 99283

== ENCOUNTER → 2023-05-26 10:35 | Outpatient (BNVA) | payer MEDICAID, SELFPAY | PROVIDERS: PCP Family Medicine; Visit Provider Specialist | DX: M79.641 Pain in right hand | CPT/HCPCS: 99204 ==

== ENCOUNTER 2023-06-26 15:03 | Outpatient (CLI) | payer MEDICAID, SELFPAY ==
--- NOTE | 2023-06-26 15:15 | MR_ITS ---
WS: [id number] MRI OF THE RIGHT HAND WITHOUT GADOLINIUM ENHANCEMENT. INDICATION: RIGHT ring finger pain for 2 months TECHNIQUE: Axial T1, axial T2, coronal T1, coronal STIR, sagittal T2 fat-sat, coronal 3D FSPGR FINDINGS: Normal anatomic alignment. Normal bone marrow signal in the fourth digit. No evidence of os teomyelitis. No acute fractures. Visualized proximal and distal carpal bones normal in appearance. No rmal metacarpals. Diffuse fluid along the fourth finger flexor tendon sheath extending from the head of the fourth meta carpal distally. Small amount of surrounding soft tissue edema. No evidence of drainable abscess or f luid collection. Flexor compartment tendons are normal in appearance. Recommend correlation with infe ctious or inflammatory tenosynovitis. Recommend correlation with injury. No other acute findings. IMPRESSION: 1. Mild diffuse fluid involving the fourth finger flexor tendon sheath extending from the head of th e fourth metacarpal to the distal phalanx compatible with tenosynovitis. Recommend correlation with i nfectious or inflammatory symptoms. Recommend correlation with injury. Mild associated soft tissue ed daquan. 2. Underlying flexor tendons in the fourth finger demonstrate normal signal and are otherwise normal in appearance. 3. No evidence of osteomyelitis or acute fracture. 4. No other acute findings.
== END 2023-06-26 15:04 | disposition home or self-care (01) ==
LOC: RAD 15:04
PROVIDERS: PCP Physician Assistant; Visit Provider Specialist
DX: S66.114A Strain of flexor muscle, fascia and tendon of right ring finger at wrist and hand level, initial encounter (principal); X58.XXXA Exposure to other specified factors, initial encounter
CPT/HCPCS: 73218

== ENCOUNTER → 2023-07-16 15:28 | Outpatient (BNVA) | payer MEDICAID, SELFPAY | PROVIDERS: PCP Physician Assistant; Visit Provider Nurse Practitioner | DX: M06.4 Inflammatory polyarthropathy (principal); Z79.899 Other long term (current) drug therapy; M65.841 Other synovitis and tenosynovitis, right hand; M79.641 Pain in right hand | CPT/HCPCS: 36415; 80053; 84550; 85025; 85651; 86140; 86225; 86235; 86431; 99214 ==

== ENCOUNTER → 2023-08-01 09:26 | Outpatient (BNVA) | payer MEDICAID, SELFPAY | PROVIDERS: PCP Physician Assistant; Referring Provider Physician Assistant; Visit Provider Internal Medicine | DX: E11.9 Type 2 diabetes mellitus without complications (principal); Z79.4 Long term (current) use of insulin; E03.9 Hypothyroidism, unspecified; E78.5 Hyperlipidemia, unspecified; E66.01 Morbid (severe) obesity due to excess calories; Z68.44 Body mass index [BMI] 60.0-69.9, adult | CPT/HCPCS: 99204 ==

== ENCOUNTER → 2023-08-20 14:01 | Outpatient (BNVA) | payer MEDICAID, SELFPAY | PROVIDERS: PCP Physician Assistant; Visit Provider Specialist | DX: M65.841 Other synovitis and tenosynovitis, right hand | CPT/HCPCS: 99214 ==

== ENCOUNTER 2023-09-06 19:48 | Emergency (ER) | payer MEDICAID, SELFPAY ==
[2023-09-06 20:01] VITALS: BP 164/93; PULSE 86; RESP 17; TEMP 36.7; O2SAT 98; BMI 62.2
--- NOTE | 2023-09-06 20:47 | ED_ITS ---
Documented by User: ALEX Delacruz 09/06/23 20:51 HPI - Dental/Oral General: Chief complaint: Dental/Oral Stated complaint: TOOTH ACHE Time Seen by Provider: 09/06/23 20:32 Source: patient Mode of arrival: ambulatory Limitations: no limitations History of Present Illness: Patient is a 38-year-old female presenting to the emergency department complaining of right upper dental pain. Patient recently had some teeth pulled and was prescribed amoxicillin, but she is noting increased pain. She states she tried to call the dentist to get an appointment, but states she is not able to see him until late next week and to go to the ER if her pain persisted. She has been taking Tylenol, though infrequently for her pain and states this does not provide much relief. I did offer her a bupivacaine shot upon initial visit, to which she denies. She is denying any fever or other symptoms at this time. Associated symptoms: Denies ear or mastoid pain or fever(s) Review of Systems General: Reports: 10 or more systems reviewed and unremarkable except in HPI and below Const: Denies: fever(s), chills or fatigue Eyes: Denies: change in vision ENMT: Reports: dental pain; Denies: throat pain, ear or mastoid pain or nasal discharge Card: Denies: chest pain, palpitations, swelling of feet/ankles or lightheadedness Resp: Denies: dyspnea, productive cough or wheezing GI: Denies: abdominal pain, nausea, vomiting, diarrhea or constipation : Denies: flank pain, difficulty voiding, dysuria or urinary frequency Musc: Denies: neck pain, back pain or joint pain Skin/Breast: Denies: rash Neuro: Denies: headache(s), numbness in extremities or weakness in extremities PFS ED PFSH: Medical History Tenosynovitis of finger Chronic recurrent major depressive disorder Pain management contract signed No pertinent past medical history Denies asthma, seizures, DVT/PE PCP: Dr. Stanley Dyslipidemia Diagnosed in 2016 Type 2 diabetes mellitus, with long-term current use of insulin Diagnosed in 2007 Hypothyroid Diagnosed in 2016 Anxiety and depression Diagnosed in 2016 and has been on medication. Currently managed by Dr. Devries in [facility] [place]. Essential hypertension Diagnosed in 2016 and is currently on medication managed by her primary care provider. 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 Surgical History H/O retained foreign body fully removed (12/15/19) Left upper lip H/O hand surgery Right hand for an infection in 2019 Family History Grandmother Diabetes maternal Family/Other Diabetes maternal uncle Denies family history of Colon cancer Ovarian cancer Heart disease Hyperlipidemia Breast cancer Anesthesia complication Bleeding disorder Hypertension Uterine cancer Thyroid disease Stroke Social History Smoking and tobacco/nicotine status: current every day tobacco/nicotine user cigarettes Packs smoked per day: 0.15 Years cigarettes smoked: 5 Quit status (tobacco/nicotine): has tried quititng Number of times tried to quit tobacco: 3 Second hand smoke exposure: Yes Alcohol intake: current Alcohol intake frequency: holidays/special occasions only Alcohol type: other Substance/Drug Use: former Date of last use: MARIJUANA- about 2 months. Meth 6 months. Household members: significant other Marital status: Single Current occupational status: disabled Current gender identity: Female Physical Exam Const: COMMON NORMALS: no acute distress GENERAL APPEARANCE: cooperative, comfortable and well developed NUTRITIONAL APPEARANCE: obese morbidly obese HENMT: COMMON NORMALS: normocephalic, atraumatic, hearing grossly normal bilaterally, external ears normal, EAC's normal, TM's normal bilaterally, Normal external nose present and Normal nasal mucous membranes and turbinates present HEAD & SCALP: normal to inspection, normocephalic and atraumatic FACE & SINUS: normal facial exam and sinuses nontender NOSE: Normal external nose present, Normal nares present, No nasal polyps present and Normal nasal mucous membranes and turbinates present EXTERNAL EAR: Yes external ears normal EXTERNAL AUDITORY CANAL: EAC's normal TYMPANIC MEMBRANE: TM's normal bi laterally MOUTH: Normal oral and palatal mucosa present TEETH & GINGIVA: Yes poor dentition THROAT: posterior oropharynx normal and tonsils normal OTHER: Evidence of recently extracted teeth to right upper dentition, no active drainage, edema, or significant erythema. Eye: COMMON NORMALS: EOMs intact bilaterally, conjunctivae normal and normal visual weathers by confrontation GENERAL EYE: appearance normal, both eyes and all related structures CONJUNCTIVA: Yes conjunctivae normal Neck/C-Spine: COMMON NORMALS: full ROM, no lymphadenopathy, supple and no meningeal signs GENERAL: Yes normal visual inspection Chest: COMMONS NORMALS: normal inspection of the chest Resp: COMMON NORMALS: normal respiratory effort and clear to auscultation bilaterally EFFORT & INSPECTION: Yes able to speak in complete sentences AUSCULTATION: clear to auscultation bilaterally Cardio: COMMON NORMALS: regular rate, regular rhythm, S1 normal heart sound present and S2 normal heart sound present RATE: regular rate RHYTHM: regular rhythm HEART SOUNDS: S1 normal heart sound present, S2 normal heart sound present, no gallops, no murmurs and no rubs Extremity: COMMON NORMALS: normal to inspection, full ROM and capillary refill normal Neuro: MENINGEAL SIGNS: Yes no meningeal signs Skin: COMMON NORMALS: no rashes or lesions noted GENERAL SKIN EXAM: no rashes or lesions noted Course Vital Signs: Vital signs: Vital Signs Temperature 98.1 F 09/06/23 20:01 Pulse Rate 86 09/06/23 20:01 Respiratory Rate 18 09/06/23 21:37 Blood Pressure 164/93 09/06/23 20:01 Pulse Oximetry 98 09/06/23 20:01 Oxygen Delivery Me thod Room Air 09/06/23 20:01 MDM - Dental/Oral Medical Decision Making This patient was seen for evaluation of right upper dental pain, status post extraction. Told to come to the ED by dentist for pain relief. Exam did show poor dentition and recently extracted teeth, however no significant evidence of an infection though she is currently on amoxicillin. I did offer her a dental block with bupivacaine, but she adamantly denies stating she hates needles. She is given 1 tablet of hydrocodone, as is driving. I did inform her to start regimen of alternating 1 g of Tylenol and 800 mg of ibuprofen every 3 hours 1 after the other. She understands this and will follow-up with dentist next week as planned. Reasons to return discussed. Patient discharged home. No radiology studies performed this visit Discharge Plan Discharge Patient Disposition: Home Clinical Impression: Pain, dental Condition: Stable Prescriptions: No Action insulin lispro [Humalog KwikPen Insulin] 100 unit/mL insulin pen 15 unit SUBCUT TID Qty: 15 2RF Rx Instructions: Please dispense needle tips as well (DME) blood-glucose meter [Accu-Chek Letha Plus Meter] Mis See Rx Instructions .ROUTE .MEDSUPPLY Qty: 1 0RF Rx Instructions: As directed ([facility] [place] [facility]) pen needle, diabetic [1st Tier Unifine Pentips] 32 gauge x /32 needle See Rx Instructions .ROUTE .MEDSUPPLY Qty: 200 1RF Rx Instructions: 5 daily (DME) Accu-Chek Letha Plus test strp Strip See Rx Instructions .ROUTE .MEDSUPPLY Qty: 200 3RF Rx Instructions: 4 daily (DME) lancets [Accu-Chek Fastclix Lancet Drum] Misc See Rx Instructions .ROUTE .MEDSUPPLY Qty: 200 2RF Rx Instructions: 4 daily glipizide 10 mg tablet 10 mg PO DAILY fluoxetine 40 mg capsule 80 mg PO DAILY Qty: 60 2RF mirtazapine 30 mg tablet 30 mg PO .HS Qty: 30 2RF quetiapine [Seroquel] 50 mg tablet 50 mg PO TID Qty: 90 2RF cetirizine [Zyrtec] 10 mg tablet 10 mg PO DAILY PRN (Reason: allergy symptoms) Qty: 30 0RF nystatin 100,000 unit/gram cream 1 applic topical TID Qty: 30 6RF Rx Instructions: apply to vulva 2-3 x / day mometasone 0.1 % cream 1 applic topical BID Qty: 45 3RF Rx Instructions: apply to vulva 2-3 x / day Trulicity 1.5 mg/0.5 mL pen injector 1.5 mg SUBCUT Q7D 30 Days Qty: 2 0RF Rx Instructions: 1.5mg weekly x one month Trulicity 3 mg/0.5 mL pen injector 3 mg SUBCUT Q7D Qty: 2 1RF Rx Instructions: 3 mg weekly ([facility] [place] [facility]) Dexcom G7 Sensor Device See Rx Instructions .Route Qty: 3 2RF Rx Instructions: As directed ([facility] [place] [facility]) Dexcom G7 Body Painter Misc See Rx Instructions .Route Qty: 1 0RF Rx Instructions: As directed cephalexin 500 mg capsule 500 mg PO Q8H 10 Days Qty: 30 0RF Rx Instructions: Take 1 tablet 4 times a day. levothyroxine 50 mcg capsule 50 mcg PO DAILY Qty: 30 5RF verapamil 80 mg tablet 80 mg PO TID Qty: 90 5RF atorvastatin 20 mg tablet 20 mg PO DAILY Qty: 30 2RF losartan 50 mg tablet 50 mg PO DAILY Qty: 90 1RF Lantus Solostar U-100 Insulin 100 unit/mL (3 mL) insulin pen 50 unit SUBCUT DAILY Qty: 15 0RF celecoxib [Celebrex] 100 mg capsule 100 mg PO BID Qty: 60 1RF diclofenac sodium 1 % gel 2 g topical QID Qty: 100 0RF Rx Instructions: apply to single elbow, wrist or hand; for hand includes palm/fingers/back of hand Trulicity 0.75 mg/0.5 mL pen injector 0.75 mg SUBCUT Q7D 30 Days Qty: 2 0RF Rx Instructions: 0.75mg weekly x one month mupirocin 2 % ointment 1 applic topical BID Qty: 22 0RF Discharge Orders: Discharge ED (Routine); Ordered 09/06/23 Ordered By: Aristeo Belle Referrals: Yessica Jo PA [Primary Care Provider] - Discharge Diet: Usual diet Discharge Activity: Increase activity as tolerated Patient Instructions: Opioid Safety, Pain Management Activity Restrictions/Additional Instructions: Follow-up with dentist as instructed. Alternate Tylenol and ibuprofen as instructed. Return with any new or worsening symptoms. Coding Level of Care Code ED Assembly Room Supervisor for Chg Fwd Documented by User: Roberto Barros DO 09/10/23 09:19 HPI - Dental/Oral General: Chief complaint: Dental/Oral Stated complaint: TOOTH ACHE Time Seen by Provider: 09/06/23 20:32 PFSH ED PFSH: Medical History Tenosynovitis of finger Chronic recurrent major depressive disorder Pain management contract signed No pertinent past medical history Denies asthma, seizures, DVT/PE PCP: Dr. Stanley Dyslipidemia Diagnosed in 2016 Type 2 diabetes mellitus, with long-term current use of insulin Diagnosed in 2007 Hypothyroid Diagnosed in 2016 Anxiety and depression Diagnosed in 2016 and has been on medication. Currently managed by Dr. Devries in [facility] [place]. Essential hypertension Diagnosed in 2016 and is currently on medication managed by her primary care provider. 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 Surgical History H/O retained foreign body fully removed (12/15/19) Left upper lip H/O hand surgery Right hand for an infection in 2019 Family History Grandmother Diabetes maternal Family/Other Diabetes maternal uncle Denies family history of Colon cancer Ovarian cancer Heart disease Hyperlipidemia Breast cancer Anesthesia complication Bleeding disorder Hypertension Uterine cancer Thyroid disease Stroke Social History Smoking and tobacco/nicotine status: current every day tobacco/nicotine user cigarettes Packs smoked per day: 0.15 Years cigarettes smoked: 5 Quit status (tobacco/nicotine): has tried quititng Number of times tried to quit tobacco: 3 Second hand smoke exposure: Yes Alcohol intake: current Alcohol intake frequency: holidays/special occasions only Alcohol type: other Substance/Drug Use: former Date of last use: MARIJUANA- about 2 months. Meth 6 months. Household members: significant other Marital status: Single Current occupational status: disabled Current gender identity: Female Course Vital Signs: Vital signs: Vital Signs Temperature 98.1 F 09/06/23 20:01 Pulse Rate 86 09/06/23 20:01 Respiratory Rate 18 09/06/23 21:37 Blood Pressure 164/93 09/06/23 20:01 Pulse Oximetry 98 09/06/23 20:01 Oxygen Delivery Me thod Room Air 09/06/23 20:01 MDM - Dental/Oral Medical Decision Making This patient was seen for evaluation of right upper dental pain, status post extraction. Told to come to the ED by dentist for pain relief. Exam did show poor dentition and recently extracted teeth, however no significant evidence of an infection though she is currently on amoxicillin. I did offer her a dental block with bupivacaine, but she adamantly denies stating she hates needles. She is given 1 tablet of hydrocodone, as is driving. I did inform her to start regimen of alternating 1 g of Tylenol and 800 mg of ibuprofen every 3 hours 1 after the other. She understands this and will follow-up with dentist next week as planned. Reasons to return discussed. Patient discharged home. Chart reviewed Discharge Plan Discharge Patient Disposition: Home Clinical Impression: Pain, dental Condition: Stable Prescriptions: No Action insulin lispro [Humalog KwikPen Insulin] 100 unit/mL insulin pen 15 unit SUBCUT TID Qty: 15 2RF Rx Instructions: Please dispense needle tips as well (DME) blood-glucose meter [Accu-Chek Letha Plus Meter] Misc See Rx Instructions .ROUTE .MEDSUPPLY Qty: 1 0RF Rx Instructions: As directed (DME) pen needle, diabetic [1st Tier Unifine Pentips] 32 gauge x 5/32 needle See Rx Instructions .ROUTE .MEDSUPPLY Qty: 200 1RF Rx Instructions: 5 daily (DME) Accu-Chek Letha Plus test strp Strip See Rx Instructions .ROUTE .MEDSUPPLY Qty: 200 3RF Rx Instructions: 4 daily (DME) lancets [Accu-Chek Fastclix Lancet Drum] Misc See Rx Instructions .ROUTE .MEDSUPPLY Qty: 200 2RF Rx Instructions: 4 daily glipizide 10 mg tablet 10 mg PO DAILY fluoxetine 40 mg capsule 80 mg PO DAILY Qty: 60 2RF mirtazapine 30 mg tablet 30 mg PO .HS Qty: 30 2RF quetiapine [Seroquel] 50 mg tablet 50 mg PO TID Qty: 90 2RF cetirizine [Zyrtec] 10 mg tablet 10 mg PO DAILY PRN (Reason: allergy symptoms) Qty: 30 0RF nystatin 100,000 unit/gram cream 1 applic topical TID Qty: 30 6RF Rx Instructions: apply to vulva 2-3 x / day mometasone 0.1 % cream 1 applic topical BID Qty: 45 3RF Rx Instructions: apply to vulva 2-3 x / day Trulicity 1.5 mg/0.5 mL pen injector 1.5 mg SUBCUT Q7D 30 Days Qty: 2 0RF Rx Instructions: 1.5mg weekly x one month Trulicity 3 mg/0.5 mL pen injector 3 mg SUBCUT Q7D Qty: 2 1RF Rx Instructions: 3 mg weekly (DME) Dexcom G7 Sensor Device See Rx Instructions .Route Qty: 3 2RF Rx Instructions: As directed (DME) Dexcom G7 Body Painter Misc See Rx Instructions .Route Qty: 1 0RF Rx Instructions: As directed cephalexin 500 mg capsule 500 mg PO Q8H 10 Days Qty: 30 0RF Rx Instructions: Take 1 tablet 4 times a day. levothyroxine 50 mcg capsule 50 mcg PO DAILY Qty: 30 5RF verapamil 80 mg tablet 80 mg PO TID Qty: 90 5RF atorvastatin 20 mg tablet 20 mg PO DAILY Qty: 30 2RF losartan 50 mg tablet 50 mg PO DAILY Qty: 90 1RF Lantus Solostar U-100 Insulin 100 unit/mL (3 mL) insulin pen 50 unit SUBCUT DAILY Qty: 15 0RF celecoxib [Celebrex] 100 mg capsule 100 mg PO BID Qty: 60 1RF diclofenac sodium 1 % gel 2 g topical QID Qty: 100 0RF Rx Instructions: apply to single elbow, wrist or hand; for hand includes palm/fingers/back of hand Trulicity 0.75 mg/0.5 mL pen injector 0.75 mg SUBCUT Q7D 30 Days Qty: 2 0RF Rx Instructions: 0.75mg weekly x one month mupirocin 2 % ointment 1 applic topical BID Qty: 22 0RF Discharge Orders: Discharge ED (Routine); Ordered 09/06/23 Ordered By: Aristeo Belle Referrals: Yessica Jo PA [Primary Care Provider] - Discharge Diet: Usual diet Discharge Activity: Increase activity as tolerated Patient Instructions: Opioid Safety, Pain Management Activity Restrictions/Additional Instructions: Follow-up with dentist as instructed. Alternate Tylenol and ibuprofen as instructed. Return with any new or worsening symptoms. Coding Level of Care Code ED Assembly Room Supervisor for Soham Morales
[2023-09-06] MEDS: HYDROcodone-acetaminophen 7.5-325 mg Tablet 1 TAB PO (20:59)
[2023-09-06 21:37] VITALS: RESP 18
== END 2023-09-06 21:37 | disposition home or self-care (01) ==
PROVIDERS: Emergency Provider Physician Assistant; PCP Physician Assistant
DX: K08.89 Other specified disorders of teeth and supporting structures (principal); Z79.85 Long-term (current) use of injectable non-insulin antidiabetic drugs; Z79.4 Long term (current) use of insulin; F17.210 Nicotine dependence, cigarettes, uncomplicated; E78.5 Hyperlipidemia, unspecified; E11.9 Type 2 diabetes mellitus without complications; I10 Essential (primary) hypertension
CPT/HCPCS: 99283

== ENCOUNTER → 2023-11-14 11:00 | Outpatient (BNVA) | payer MEDICAID, SELFPAY | PROVIDERS: PCP Physician Assistant; Visit Provider Internal Medicine | DX: E11.9 Type 2 diabetes mellitus without complications (principal); Z79.4 Long term (current) use of insulin; E78.5 Hyperlipidemia, unspecified; E03.9 Hypothyroidism, unspecified; E66.01 Morbid (severe) obesity due to excess calories; Z68.44 Body mass index [BMI] 60.0-69.9, adult; M79.641 Pain in right hand; Z79.84 Long term (current) use of oral hypoglycemic drugs; Z79.890 Hormone replacement therapy | CPT/HCPCS: 36415; 80053; 80061; 82044; 83036; 84439; 84443; 99214 ==

== ENCOUNTER 2023-11-23 18:58 | Emergency (ER) | payer MEDICAID, SELFPAY ==
[2023-11-23 19:15] VITALS: BP 152/92; PULSE 75; RESP 17; TEMP 36.8; O2SAT 98; BMI 58.6
--- NOTE | 2023-11-23 19:42 | W.ED.BACK ---
HPI - Back Pain/Injury General: Chief Complaint: Back Pain/Injury Stated Complaint: Lower back pain Time Seen by Provider: 11/23/23 19:36 History of Present Illness: 38-year-old female reports that on she bent over and felt a pop in her back. Since then patient has had increased pain and difficulty with back discomfort. Patient does have a history of intervertebral disc disease with a herniated disc. Patient reports that later she had repeat exam that showed that the herniation of the disc was improved. Patient appears in moderate pain. Patient appears nontoxic. Patient has difficulty with standing due to the pain. Review of Systems General: Reports: 10 or more systems reviewed and unremarkable except in HPI and below Musc: Reports: back pain PFSH ED PFSH: Medical History Tenosynovitis of finger Chronic recurrent major depressive disorder Pain management contract signed No pertinent past medical history Denies asthma, seizures, DVT/PE PCP: Dr. Stanley Dyslipidemia Diagnosed in 2016 Type 2 diabetes mellitus, with long-term current use of insulin Diagnosed in 2007 Hypothyroid Diagnosed in 2016 Anxiety and depression Diagnosed in 2016 and has been on medication. Currently managed by Dr. Devries in [facility]. Essential hypertension Diagnosed in 2016 and is currently on medication managed by her primary care provider. 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 Surgical History H/O retained foreign body fully removed (12/15/19) Left upper lip H/O hand surgery Right hand for an infection in 2019 Family History Grandmother Diabetes maternal Family/Other Diabetes maternal uncle Denies family history of Colon cancer Ovarian cancer Heart disease Hyperlipidemia Breast cancer Anesthesia complication Bleeding disorder Hypertension Uterine cancer Thyroid disease Stroke Social History Smoking and tobacco/nicotine status: never used tobacco/nicotine Quit status (tobacco/nicotine): has tried quititng Number of times tried to quit tobacco: 3 Second hand smoke exposure: Yes Alcohol intake: current Alcohol intake frequency: holidays/special occasions only Alcohol type: other Substance/Drug Use: former Date of last use: MARIJUANA- about 2 months. Meth 6 months. Household members: significant other Marital status: Single Current occupational status: disabled Current gender identity: Female Physical Exam Const: COMMON NORMALS: alert HENMT: COMMON NORMALS: normocephalic HEAD & SCALP: normocephalic Neck/C-Spine: COMMON NORMALS: full ROM Resp: COMMON NORMALS: normal respiratory effort Cardio: COMMON NORMALS: regular rate RATE: regular rate Back/Pelvis: COMMON NORMALS: thoracic and lumbar spine normal to inspection LUMBAR SPINE/LOWER BACK: Yes lumbar spinal tenderness Lumbar spinal tenderness location: L5 and Yes paraspinal muscle tenderness Lumbar paraspinal muscle tenderness: left Extremity: COMMON NORMALS: normal to inspection and full ROM Neuro: SENSORIUM/ORIENTATION: Yes alert Skin: COMMON NORMALS: turgor normal GENERAL SKIN EXAM: turgor normal Course Vital Signs: Vital signs: Vital Signs Temperature 98.3 F 11/23/23 19:15 Pulse Rate 75 11/23/23 19:15 Respiratory Rate 17 11/23/23 19:15 Blood Pressure 152/92 11/23/23 19:15 Pulse Oximetry 98 11/23/23 19:15 Oxygen Delivery Me thod Room Air 11/23/23 19:15 MDM - Back Pain/Injury Medical Decision Making 38-year-old female comes in with exacerbation of back pain. On exam patient has muscle tenderness. Patient does have some lower vertebral tenderness on palpation. Differential diagnosis intervertebral disc disease, facet arthropathy, lumbar strain. No x-rays were performed due to no falls or significant injuries. Patient described a strain event. Patient does have some vertebral tenderness and a known history of herniated disc. Most likely this is between L5 and S1. And this is where patient's tenderness along the spine is noted. Patient also has some muscle tenderness in the left lumbar area. Patient was given a dose of Toradol and a dose of morphine intramuscularly in the emergency room. Reviewed exam with patient recommendation for further treatment and follow-up. Patient is not a good candidate for prednisone due to diabetes. We will try diclofenac 75 tell her to hold any further NSAIDs and give her some hydrocodone for severe pain. Patient can continue with her tizanidine as needed for muscle laxation. Patient reports understanding agreed to plan. No radiology studies performed this visit Discharge Plan Discharge Patient Disposition: Home Clinical Impression: Degenerated intervertebral disc Qualifiers: Spinal region: lumbar Qualified Code(s): M51.36 - Other intervertebral disc degeneration, lumbar region Condition: Stable Prescriptions: New diclofenac sodium 75 mg tablet,delayed release (DR/EC) 75 mg PO BID Qty: 20 0RF Rx Instructions: hold celecoxib, ibuprofen, and Naproxen while taking hydrocodone-acetaminophen 5-325 mg tablet 1 tab PO Q8H PRN (Reason: pain) Qty: 9 0RF No Action insulin lispro [Humalog KwikPen Insulin] 100 unit/mL insulin pen 15 unit SUBCUT TID Qty: 15 2RF Rx Instructions: Please dispense needle tips as well (DME) blood-glucose meter [Accu-Chek Letha Plus Meter] Misc See Rx Instructions .ROUTE .MEDSUPPLY Qty: 1 0RF Rx Instructions: As directed (DME) pen needle, diabetic [1st Tier Unifine Pentips] 32 gauge x 5/32 needle See Rx Instructions .ROUTE .MEDSUPPLY Qty: 200 1RF Rx Instructions: 5 daily (DME) Accu-Chek Letha Plus test strp Strip See Rx Instructions .ROUTE .MEDSUPPLY Qty: 200 3RF Rx Instructions: 4 daily (DME) lancets [Accu-Chek Fastclix Lancet Drum] Misc See Rx Instructions .ROUTE .MEDSUPPLY Qty: 200 2RF Rx Instructions: 4 daily glipizide 10 mg tablet 10 mg PO DAILY fluoxetine 40 mg capsule 80 mg PO DAILY Qty: 60 2RF mirtazapine 30 mg tablet 30 mg PO .HS Qty: 30 2RF quetiapine [Seroquel] 50 mg tablet 50 mg PO TID Qty: 90 2RF cetirizine [Zyrtec] 10 mg tablet 10 mg PO DAILY PRN (Reason: allergy symptoms) Qty: 30 0RF nystatin 100,000 unit/gram cream 1 applic topical TID Qty: 30 6RF Rx Instructions: apply to vulva 2-3 x / day mometasone 0.1 % cream 1 applic topical BID Qty: 45 3RF Rx Instructions: apply to vulva 2-3 x / day cephalexin 500 mg capsule 500 mg PO Q8H 10 Days Qty: 30 0RF Rx Instructions: Take 1 tablet 4 times a day. Trulicity 1.5 mg/0.5 mL pen injector 1.5 mg SUBCUT Q7D Qty: 2 2RF Rx Instructions: 1.5mg weekly (DME) Dexcom G7 Track Inspecting Supervisor Misc See Rx Instructions .Route Qty: 1 0RF Rx Instructions: As directed (DME) Dexcom G7 Sensor Device See Rx Instructions .Route Qty: 3 2RF Rx Instructions: As directed ondansetron HCl 8 mg tablet 8 mg PO Q8H PRN (Reason: nausea and vomiting) Qty: 30 0RF levothyroxine 50 mcg capsule 50 mcg PO DAILY Qty: 30 5RF verapamil 80 mg tablet 80 mg PO TID Qty: 90 5RF atorvastatin 20 mg tablet 20 mg PO DAILY Qty: 30 2RF losartan 50 mg tablet 50 mg PO DAILY Qty: 90 1RF Lantus Solostar U-100 Insulin 100 unit/mL (3 mL) insulin pen 50 unit SUBCUT DAILY Qty: 15 0RF celecoxib [Celebrex] 100 mg capsule 100 mg PO BID Qty: 60 1RF diclofenac sodium 1 % gel 2 g topical QID Qty: 100 0RF Rx Instructions: apply to single elbow, wrist or hand; for hand includes palm/fingers/back of hand mupirocin 2 % ointment 1 applic topical BID Qty: 22 0RF Discharge Orders: Discharge ED (Routine); Ordered 11/23/23 Ordered By: Moshe Cooper Referrals: Yessica Jo PA [Primary Care Provider] - Discharge Diet: Usual diet Discharge Activity: Increase activity as tolerated Patient Instructions: Back Pain (ED) Activity Restrictions/Additional Instructions: Try to maintain normal activity as much as possible. Gentle stretching range of motion exercises. Take diclofenac sodium 75 mg 2 times a day for pain and inflammation. While taking diclofenac do not take any NSAIDs such as celecoxib, ibuprofen, or naproxen. Use hydrocodone as needed for severe pain. Drink plenty of water with medications. Continue routine medications as directed unless otherwise specified Coding Level of Care Code ED Bicycle Technician for Soham Morales
[2023-11-23 20:03] VITALS: RESP 18; O2SAT 100
[2023-11-23] MEDS: morphine 4 mg/mL SDV 1 mL IM (20:03)
[2023-11-23] MEDS: ketorolac 30 mg/mL INJ IM (20:04)
[2023-11-23 20:06] VITALS: PULSE 77; RESP 18; O2SAT 100
[2023-11-23] MEDS: HYDROcodone-acetaminophen 5-325 mg Tablet 2 TAB PO (20:51)
[2023-11-23 20:53] VITALS: BP 159/109; RESP 18
== END 2023-11-23 20:55 | disposition home or self-care (01) ==
PROVIDERS: Emergency Provider Nurse Practitioner Family; PCP Physician Assistant
DX: M51.36 Other intervertebral disc degeneration, lumbar region (principal); E11.9 Type 2 diabetes mellitus without complications; I10 Essential (primary) hypertension; E78.5 Hyperlipidemia, unspecified; E03.9 Hypothyroidism, unspecified; Z79.4 Long term (current) use of insulin; Z79.84 Long term (current) use of oral hypoglycemic drugs; Z79.85 Long-term (current) use of injectable non-insulin antidiabetic drugs
CPT/HCPCS: 96372; 99284; J1885; J2270

== ENCOUNTER 2023-12-24 06:00 | Emergency (ER) | payer MEDICAID, SELFPAY ==
[2023-12-24 06:04] VITALS: BP 196/121; PULSE 84; RESP 16; TEMP 37.2; O2SAT 94; BMI 56.5
--- NOTE | 2023-12-24 06:07 | W.ED.BACK ---
HPI - Back Pain/Injury General: Chief Complaint: Fall Stated Complaint: back pain Time Seen by Provider: 12/24/23 06:04 History of Present Illness: 38-year-old female presents to the emergency room with complaint of low back pain. She references pain to her lumbosacral junction. She told the nurse she fell 2 days ago she told me she fell about a week ago. In any event she has been using [id number] Tylenol ibuprofen last night took previously prescribed muscle relaxer at around 9:00 -(she was described tizanidine on November 22 after an ER visit for back pain as well) she says she has not really had a relief of the pain. When she fell she landed flat on her back and has had severe low back pain since. Patient was seen on May 25 for back pain there was no associated fall or trauma at that time was treated as musculoskeletal she was given tizanidine diclofenac and hydrocodone. She was not given prednisone because of her diabetes. It seemed to be getting better until she fell again recently. Patient denies any fecal incontinence or urinary retention no radiation of pain to her legs. Associated symptoms: Deny abdominal pain, chills, dysuria, fecal incontinence, fever(s) or urinary urgency Related Data Home Medications Medication Instructions Recorded Confirmed glipizide 10 mg tablet 10 mg PO DAILY 08/12/22 12/24/23 gabapentin 300 mg capsule See Rx Instructions .Route .COMPLEX 12/24/23 12/24/23 meloxicam 15 mg tablet 15 mg PO DAILY 12/24/23 12/24/23 spironolactone 25 mg tablet 25 mg PO DAILY 12/24/23 12/24/23 Previous Rx's Medication Instructions Recorded blood sugar diagnostic (Accu-Chek #200 ea 11/29/19 Letha Plus test strips) blood-glucose meter (Accu-Chek #1 ea 11/29/19 Letha Plus Meter) lancets (Accu-Chek Fastclix Lancet #200 ea 11/29/19 Drum) pen needle, diabetic 32 gauge x #200 ea 11/29/19 (1st Tier Unifine Pentips) atorvastatin 20 mg tablet 20 mg PO DAILY #30 tabs 03/30/20 levothyroxine 50 mcg capsule 50 mcg PO DAILY #30 caps 03/30/20 losartan 50 mg tablet 50 mg PO DAILY #90 tabs 03/30/20 insulin glargine 100 unit/mL (3 50 unit (0.5 mL) SUBCUT DAILY #15 05/19/20 mL) subcutaneous pen (Lantus mL Solostar U-100 Insulin) cetirizine 10 mg tablet (Zyrtec) 10 mg PO DAILY PRN allergy 11/12/22 symptoms #30 tabs dulaglutide 1.5 mg/0.5 mL 1.5 mg (0.5 mL) SUBCUT Q7D #2 mL 11/14/23 subcutaneous pen injector (Trulicity) ondansetron HCl 8 mg tablet 8 mg PO Q8H PRN nausea and 11/14/23 vomiting #30 tabs blood-glucose meter,continuous #1 ea 11/26/23 (FreeStyle Dejon 3 Dulzura) blood-glucose sensor (FreeStyle #1 ea 11/26/23 Dejon 3 Sensor device) diclofenac sodium 75 mg 75 mg PO Q12H PRN pain #20 tabs 12/24/23 tablet,delayed release prednisone 20 mg tablet 20 mg PO TID #15 tabs 12/24/23 tizanidine 4 mg tablet 4 mg PO Q6H PRN muscle spasticity 12/24/23 #20 tabs Allergies Allergy/AdvReac Type Severity Reaction Status Date / Time cyclobenzaprine AdvReac Intermediate Dry Verified 11/23/23 19:17 [From Flexeril] mouth/can't speak/hives. Review of Systems Const: Denies: fever(s) or chills Card: Denies: chest pain Resp: Denies: dyspnea GI: Denies: abdominal pain or fecal incontinence : Denies: difficulty voiding, dysuria, urinary frequency or urinary urgency Musc: Reports: back pain; Denies: neck pain Skin/Breast: Denies: rash PFSH ED PFSH: Medical History Tenosynovitis of finger Chronic recurrent major depressive disorder Pain management contract signed No pertinent past medical history Denies asthma, seizures, DVT/PE PCP: Dr. Stanley Dyslipidemia Diagnosed in 2016 Type 2 diabetes mellitus, with long-term current use of insulin Diagnosed in 2007 Hypothyroid Diagnosed in 2016 Anxiety and depression Diagnosed in 2016 and has been on medication. Currently managed by Dr. Devries in [facility], [place]. Essential hypertension Diagnosed in 2016 and is currently on medication managed by her primary care provider. 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 Surgical History H/O retained foreign body fully removed (12/15/19) Left upper lip H/O hand surgery Right hand for an infection in 2019 Family History Grandmother Diabetes maternal Family/Other Diabetes maternal uncle Denies family history of Colon cancer Ovarian cancer Heart disease Hyperlipidemia Breast cancer Anesthesia complication Bleeding disorder Hypertension Uterine cancer Thyroid disease Stroke Social History Smoking and tobacco/nicotine status: never used tobacco/nicotine Quit status (tobacco/nicotine): has tried quititng Number of times tried to quit tobacco: 3 Second hand smoke exposure: Yes Alcohol intake: current Alcohol intake frequency: holidays/special occasions only Alcohol type: other Substance/Drug Use: former Date of last use: MARIJUANA- about 2 months. Meth 6 months. Household members: significant other Marital status: Single Current occupational status: disabled Current gender identity: Female Physical Exam Const: GENERAL APPEARANCE: cooperative ORIENTATION/CONSCIOUSNESS: Yes awake, Yes oriented to person, Yes oriented to place and Yes oriented to time HENMT: COMMON NORMALS: normocephalic, atraumatic and hearing grossly normal bilaterally HEAD & SCALP: normocephalic and atraumatic Resp: COMMON NORMALS: normal respiratory effort, No retractions, No use of accessory muscles and clear to auscultation bilaterally AUSCULTATION: clear to auscultation bilaterally Cardio: COMMON NORMALS: regular rate, regular rhythm and No murmurs present (Cardio) RATE: regular rate RHYTHM: regular rhythm GI: COMMON NORMALS: Soft to palpation and No hepatosplenomegaly present AUSCULTATION: Yes normoactive bowel sounds PALPATION: Yes Soft to palpation, No Tenderness to palpation present (GI), No Guarding due to palpation present (GI) and Yes No hepatosplenomegaly present Extremity: COMMON NORMALS: normal to inspection, capillary refill normal, no clubbing, cyanosis or edema, no calf tenderness and no pedal edema Neuro: SENSORIUM/ORIENTATION: Yes oriented to person, Yes oriented to place and Yes oriented to time OTHER: Sensation lower extremities Norse normal dorsum plantarflexion 5 of 5 straight leg raising negative. Skin: COMMON NORMALS: no rashes or lesions noted GENERAL SKIN EXAM: no rashes or lesions noted Course Vital Signs: Vital signs: Vital Signs Temperature 98.9 F 12/24/23 06:04 Pulse Rate 84 12/24/23 06:34 Respiratory Rate 19 H 12/24/23 09:20 Blood Pressure 163/108 12/24/23 06:34 Pulse Oximetry 100 12/24/23 09:20 Oxygen Delivery Me thod Room Air 12/24/23 06:34 MDM - Back Pain/Injury Medical Decision Making CT done due to the trauma associated with the back pain. Several arthritic changes noted but no significant signs of fracture or acute emergent replied. With the medicines given in the emergency room patient has good improvement of her symptoms will discharge home on a steroid taper tizanidine and diclofenac. Encouraged her to follow-up with her primary care doctor if her symptoms do not improve she may need to advanced imaging. Discussed with the patient she should either take the meloxicam or the diclofenac but not both she can choose whichever seems to make better improvements on her back pain. Labs Radiology Impressions Lumbar Spine CT 12/24/23 06:17 IMPRESSION: 1. Grade 1 anterolisthesis of L4 in relation to L5 secondary to bilateral pars defects.. 2. Multilevel degenerative disc and facet change. Particulars at each level are given above. Findings are most severe at L3-L4. Laboratory Results HCG, Qual Negative (Negative) 12/24/23 06:47 All radiology interpretation(s) finalized by discharge Discharge Plan Discharge Patient Disposition: Home Clinical Impression: Acute exacerbation of chronic low back pain Prescriptions: New tizanidine 4 mg tablet 4 mg PO Q6H PRN (Reason: muscle spasticity) Qty: 20 0RF Rx Instructions: do not exceed 3 doses per 24 hrs prednisone 20 mg tablet 20 mg PO TID Qty: 15 0RF Rx Instructions: 1 p.o. 3 times daily x3 days, 1 p.o. twice daily x2 days, 1 p.o. daily x2 days diclofenac sodium 75 mg tablet,delayed release (DR/EC) 75 mg PO Q12H PRN (Reason: pain) Qty: 20 0RF No Action (DME) blood-glucose meter [Accu-Chek Letha Plus Meter] [facility] See Rx Instructions .ROUTE .MEDSUPPLY Qty: 1 0RF Rx Instructions: As directed (DME) pen needle, diabetic [1st Tier Unifine Pentips] 32 gauge x 5/32 needle See Rx Instructions .ROUTE .MEDSUPPLY Qty: 200 1RF Rx Instructions: 5 daily (DME) Accu-Chek Letha Plus test strp Strip See Rx Instructions .ROUTE .MEDSUPPLY Qty: 200 3RF Rx Instructions: 4 daily (DME) lancets [Accu-Chek Fastclix Lancet Drum] Misc See Rx Instructions .ROUTE .MEDSUPPLY Qty: 200 2RF Rx Instructions: 4 daily glipizide 10 mg tablet 10 mg PO DAILY cetirizine [Zyrtec] 10 mg tablet 10 mg PO DAILY PRN (Reason: allergy symptoms) Qty: 30 0RF Trulicity 1.5 mg/0.5 mL pen injector 1.5 mg SUBCUT Q7D Qty: 2 2RF Rx Instructions: ON FRIDAY ondansetron HCl 8 mg tablet 8 mg PO Q8H PRN (Reason: nausea and vomiting) Qty: 30 0RF levothyroxine 50 mcg capsule 50 mcg PO DAILY Qty: 30 5RF atorvastatin 20 mg tablet 20 mg PO DAILY Qty: 30 2RF losartan 50 mg tablet 50 mg PO DAILY Qty: 90 1RF Lantus Solostar U-100 Insulin 100 unit/mL (3 mL) insulin pen 50 unit SUBCUT DAILY Qty: 15 0RF (DME) FreeStyle Dejon 3 Dulzura Misc See Rx Instructions .Route Qty: 1 0RF Rx Instructions: As directed (DME) FreeStyle Dejon 3 Sensor Device See Rx Instructions .Route Qty: 1 6RF Rx Instructions: As directed meloxicam 15 mg Tablet 15 mg PO DAILY spironolactone 25 mg tablet 25 mg PO DAILY gabapentin 300 mg capsule See Rx Instructions .ROUTE .COMPLEX Rx Instructions: TAKE 1 CAPSULE BY MOUTH IN THE MORNING AND AT NOON THEN 2 CAPSULES AT BEDTIME. Discharge Orders: Discharge ED (Routine); Ordered 12/24/23 Ordered By: Roberto Barros Referrals: Yessica Jo PA [Primary Care Provider] - Discharge Diet: Usual diet Discharge Activity: Increase activity as tolerated Patient Instructions: Acute Low Back Pain (ED), Opioid Safety, Pain Management Activity Restrictions/Additional Instructions: Thank you for choosing [facility] for your healthcare needs today. It is very important that you follow up as instructed or that you return to the Emergency Department should you have concerns or if your condition changes or worsens in any way. Follow-up with your primary care doctor within the next week if not improving Coding Level of Care Code ED Unindentured Apprentice for Soham Morales
--- NOTE | 2023-12-24 06:17 | CTR_ITS ---
PROCEDURE INFORMATION: Exam: CT Lumbar Spine Without Contrast Exam date and time: 12/24/2023 7:27 AM Age: 38 years old Clinical indication: Low back pain; Additional info: Trauma TECHNIQUE: Imaging protocol: Computed tomography of the lumbar spine without contrast. Radiation optimization: All CT scans at this facility use at least one of these dose optimization techniques: automated exposure control; mA and/or kV adjustment per patient size (includes targeted exams where dose is matched to clinical indication); or iterative reconstruction. COMPARISON: MR lumbar spine wo con* [id number] 07/10/2017 10:42 AM RADIATION DOSE METRICS: Total DLP (mGy-cm): 1041 FINDINGS: Bones/joints: Examination of the coronal reformatted images demonstrates normal alignment. Examination of the sagittal reformatted images demonstrates grade 1 anterolisthesis of L4 in relation to L5. There is minimal disc space narrowing at L3-L4, L4-L5 and L5-S1. No blastic or lytic bony lesions are appreciated. T12-L1: There is a left paracentral/left lateral disc osteophyte complex. There are degenerative changes involving the facets. There is left lateral recess stenosis and left foraminal stenosis. L1-L2: There is trace disc bulging. There are degenerative changes involving the facets. There is minimal resultant canal narrowing. The neural foramina are patent. L2-L3: There is slight disc bulging. There are degenerative changes involving the facets. There is mild resultant canal narrowing. The neural foramina are patent. L3-L4: There is a central to slightly left paracentral disc osteophyte complex. There are degenerative changes involving the facets. There is a severe resultant canal stenosis with [id number] left foraminal stenosis. The right neural foramina is patent. L4-L5: There is diffuse disc bulging. There are degenerative changes involving the facets. There is a moderate resultant canal stenosis with moderate bilateral foraminal stenosis. L5-S1: There are degenerative changes involving the facets. The spinal canal is patent. There is mild bilateral foraminal stenosis. Soft tissues: Unremarkable. CT/CT lumbar spine wo con* [id number] IMPRESSION: 1. Grade 1 anterolisthesis of L4 in relation to L5 secondary to bilateral pars defects.. 2. Multilevel degenerative disc and facet change. Particulars at each level are given above. Findings are most severe at L3-L4.
[2023-12-24] MEDS: methylPREDNISolone sod succ 125 mg/2 mL INJ IVP (06:26)
[2023-12-24] MEDS: ketorolac 60 mg/2 mL INJ IM (06:27)
[2023-12-24] MEDS: orphenadrine 30 mg/mL Inj 2 mL 60 MG IM (06:29)
[2023-12-24 06:34] VITALS: BP 163/108; PULSE 84; O2SAT 92
[2023-12-24 07:13] LABS: HCG, Serum Qual Negative (Negative)
[2023-12-24 09:20] VITALS: RESP 19; O2SAT 100
[2023-12-24] MEDS: morphine 4 mg/mL SDV 1 mL IM (09:20)
--- NOTE | 2023-12-24 10:23 | PC.PHAR ---
PT STATED CAN'T TAKE DICLOFENAC SOD 50MG AND MELOXICAM TOGETHER. NO MELOXICAM ON FILE SO I PHONED [facility] FOR NEW RX FOR MELOXICAM 15 MG DAILY FILLED 12/23/23 30DS
== END 2023-12-24 10:27 | disposition home or self-care (01) ==
PROVIDERS: Emergency Provider Family Medicine; PCP Physician Assistant
DX: G89.29 Other chronic pain (principal); M54.50 Low back pain, unspecified; Z79.85 Long-term (current) use of injectable non-insulin antidiabetic drugs; Z79.84 Long term (current) use of oral hypoglycemic drugs; Z79.4 Long term (current) use of insulin; Z87.891 Personal history of nicotine dependence; E78.5 Hyperlipidemia, unspecified; E11.9 Type 2 diabetes mellitus without complications; I10 Essential (primary) hypertension
CPT/HCPCS: 36415; 72131; 84703; 96372; 96374; 99285; J1885; J2270; J2360; J2919

== ENCOUNTER → 2024-01-28 11:47 | Outpatient (BNVA) | payer MEDICAID, SELFPAY | PROVIDERS: PCP Physician Assistant; Visit Provider Internal Medicine | DX: E11.9 Type 2 diabetes mellitus without complications (principal); Z79.4 Long term (current) use of insulin; E78.5 Hyperlipidemia, unspecified | CPT/HCPCS: 36415; 80053; 80061; 83036 ==

== ENCOUNTER → 2024-02-18 09:15 | Outpatient (BNVA) | payer MEDICAID, SELFPAY | PROVIDERS: PCP Physician Assistant; Referring Provider Physician Assistant; Visit Provider Internal Medicine | DX: E11.9 Type 2 diabetes mellitus without complications (principal); Z79.4 Long term (current) use of insulin; E78.5 Hyperlipidemia, unspecified; E03.9 Hypothyroidism, unspecified; E66.01 Morbid (severe) obesity due to excess calories; Z68.44 Body mass index [BMI] 60.0-69.9, adult; Z79.890 Hormone replacement therapy | CPT/HCPCS: 99214 ==

== ENCOUNTER 2024-04-23 14:28 | Emergency (ER) | payer MEDICAID, SELFPAY ==
--- NOTE | 2024-04-23 14:32 | ECG_ITS ---
[facility] Test Date: 2024-04-23 Pat Name: Asia Staton Department: Room: Gender: Female Cementer: : 1985 Requested By: Dante Mederos Order Number: [id number] Sathish MD: Nader Perera M.D. Measurements Intervals [place] Rate: 67 P: 31 MI: 169 QRS: 27 QRSD: 77 T: 35 QT: 374 QTc: 395 Interpretive Statements SINUS RHYTHM No previous ECG available for comparison Electronically Signed On 04-23-2024 21:55:46 BLANKET WINDER HELPER by Nader Perera M.D. [id number]
--- NOTE | 2024-04-23 14:32 | XR_ITS ---
WS: [id number] Exam: XR chest 1V portable [id number] Date/Time of Exam: 04/23/2024 2:32 PM Reason For Exam: cp Comparison 04/29/2019. Lungs are fully expanded and clear. Normal cardiomediastinal silhouette and regional bony elements. XR/XR chest 1V portable [id number] IMPRESSION: 1. Negative chest.
[2024-04-23 14:35] VITALS: PULSE 73; RESP 18; TEMP 36.5; O2SAT 97; BMI 55.7
[2024-04-23 14:41] VITALS: BP 149/94
[2024-04-23 16:16] LABS: Basophils # 0.1 10^3/uL (0.0-0.1); Basophils % 0.8 %; Eosinophils % 8.7 %; Hematocrit 44.9 % (36-47); Lymphocytes # 2.9 10^3/uL (0.8-4.8); Lymphocytes % 24.3 %; Mean Corpuscular HGB Conc 31.2 g/dL (30-55); Mean Corpuscular Hemoglobin 26.5 pg (27-33); Mean Platelet Volume 10.7 fL (7.4-10.4); Monocytes # 0.7 10^3/uL (0.2-0.9); Monocytes % 5.9 %; Neutrophils # 7.06 10^3/uL (1.8-7.7); Neutrophils % 59.9 %; Nucleated Red Blood Cells % 0 %; Platelet Count 405 10^3/cmm (157-399); Red Blood Count 5.28 10^6/uL (3.85-5.65); Red Cell Distribution Width 13.3 % (12.1-15.1); White Blood Count 11.79 10^3/uL (3.29-11.43)
[2024-04-23 16:46] LABS: Troponin(5th) Baseline < 6 ng/L (0-10)
[2024-04-23 16:51] LABS: Alanine Aminotransferase 8 U/L (0-33); Albumin Level 4.6 g/dL (3.5-5.2); Alkaline Phosphatase 83 U/L (35-105); Anion Gap 16.5 (5-19); Aspartate Amino Transferase 12 U/L (0-32); Blood Urea Nitrogen 14 mg/dL (6-20); Calcium 9.8 mg/dL (8.5-10.5); Carbon Dioxide 25 mmol/L (22-29); Chloride 101 mmol/L (98-107); Creatinine Clr Calc Pharmacy 248.7881; Globulin 3.3 g/dL (1.3-4.6); Glomerular Filtration Rate 111.3 mL/min (90-130); Glucose 85 mg/dL (65-115); Lipase 63 U/L (13-60); NT Pro B Type Natriuretic Pept 71 pg/mL (0-125); Osmolality Calculated 286 mOsm/kg (285-295); Potassium 4.5 mmol/L (3.5-5.1); Sodium 138 mmol/L (136-145); Total Bilirubin 0.4 mg/dL (0.15-1.2); Total Protein 7.9 g/dL (6.6-8.7)
[2024-04-23 18:01] LABS: Troponin 5 2HR Delta 0.00001 ABS# (0-10)
--- NOTE | 2024-04-23 18:19 | ED_ITS ---
HPI - Chest Pain 2 General: Chief Complaint: Chest Pain Stated Complaint: sharp dull chest pains SOB Time Seen by Provider: 04/23/24 18:19 History of Present Illness: 39-year-old female with a history of chr onic low back pain, hypertension, obesity, hypothyroidism, anxiety and depression who presents emergency room with chest pain. This started earlier today. Central chest. She has been having this for some time now. Intermittently. Vitals are normal on presentation. No cough. No lower extremity swelling. Related Data Home Medications Medication Instructions Recorded Confirmed glipizide 10 mg tablet 10 mg PO DAILY 08/12/22 04/22/24 gabapentin 300 mg capsule See Rx Instructions .Route .COMPLEX 12/24/23 04/22/24 meloxicam 15 mg tablet 15 mg PO DAILY 12/24/23 04/22/24 spironolactone 25 mg tablet 25 mg PO DAILY 12/24/23 04/22/24 Previous Rx's Medication Instructions Recorded blood sugar diagnostic (Accu-Chek #200 ea 11/29/19 Letha Plus test strips) blood-glucose meter (Accu-Chek #1 ea 11/29/19 Letha Plus Meter) lancets (Accu-Chek Fastclix Lancet #200 ea 11/29/19 Drum) pen needle, diabetic 32 gauge x #200 ea 11/29/19 (1st Tier Unifine Pentips) atorvastatin 20 mg tablet 20 mg PO DAILY #30 tabs 03/30/20 levothyroxine 50 mcg capsule 50 mcg PO DAILY #30 caps 03/30/20 losartan 50 mg tablet 50 mg PO DAILY #90 tabs 03/30/20 insulin glargine 100 unit/mL (3 50 unit (0.5 mL) SUBCUT DAILY #15 05/19/20 mL) subcutaneous pen (Lantus mL Solostar U-100 Insulin) cetirizine 10 mg tablet (Zyrtec) 10 mg PO DAILY PRN allergy 11/12/22 symptoms #30 tabs ondansetron HCl 8 mg tablet 8 mg PO Q8H PRN nausea and 11/14/23 vomiting #30 tabs blood-glucose meter,continuous #1 ea 11/26/23 (FreeStyle Dejon 3 [place]) blood-glucose sensor (FreeStyle #1 ea 11/26/23 Dejon 3 Sensor device) tizanidine 4 mg tablet 4 mg PO Q6H PRN muscle spasticity 12/24/23 #20 tabs exenatide 10 mcg/dose(250 10 mcg (0.04 mL) SUBCUT BID #2.4 mL 03/15/24 mcg/mL)2.4 mL subcutaneous pen injector (Byetta) buspirone 10 mg tablet 10 mg PO BID #60 tabs 04/22/24 Allergies Allergy/AdvReac Type Severity Reaction Status Date / Time cyclobenzaprine AdvReac Intermediate Dry Verified 04/22/24 09:47 [From Flexeril] mouth/can't speak/hives. Review of Systems 2 Narrative: Constitutional symptoms: Negative except as documented in HPI. Skin symptoms: Negative except as documented in HPI. Eye symptoms: Negative except as documented in HPI. ENMT symptoms: Negative except as documented in HPI. Respiratory symptoms: Negative except as documented in HPI. Cardiovascular symptoms: Negative except as documented in HPI. Gastrointestinal symptoms: Negative except as documented in HPI. Genitourinary symptoms: Negative except as documented in HPI. Musculoskeletal symptoms: Negative except as documented in HPI. Neurologic symptoms: Negative except as documented in HPI. Psychiatric symptoms: Negative except as documented in HPI. Endocrine symptoms: Negative except as documented in HPI. PFSH ED 2 PFSH: Medical History (Updated 04/23/24 @ 18:23 by Renuka Hawkins MD) Nicotine dependence due to vaping non-tobacco product Cannabis dependence Psychiatric care Tenosynovitis of finger Chronic recurrent major depressive disorder Pain management contract signed No pertinent past medical history Denies asthma, seizures, DVT/PE PCP: Dr. Stanley Dyslipidemia Diagnosed in 2016 Type 2 diabetes mellitus, with long-term current use of insulin Diagnosed in 2007 Hypothyroid Diagnosed in 2016 Anxiety and depression Diagnosed in 2016 and has been on medication. Currently managed by Dr. Devries in [facility]. Essential hypertension Diagnosed in 2016 and is currently on medication managed by her primary care provider. 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 Surgical History H/O retained foreign body fully removed (12/15/19) Left upper lip H/O hand surgery Right hand for an infection in 2019 Family History Grandmother Diabetes maternal Family/Other Diabetes maternal uncle Denies family history of Colon cancer Ovarian cancer Heart disease Hyperlipidemia Breast cancer Anesthesia complication Bleeding disorder Hypertension Uterine cancer Thyroid disease Stroke Social History Smoking and tobacco/nicotine status: never used tobacco/nicotine Quit status (tobacco/nicotine): has tried quititng Number of times tried to quit tobacco: 3 Second hand smoke exposure: Yes Alcohol intake: current Alcohol intake frequency: holidays/special occasions only Alcohol type: other Substance/Drug Use: former Date of last use: MARIJUANA- about 2 months. Meth 6 months. Household members: significant other Marital status: Single Current occupational status: disabled Current gender identity: Female Physical Exam 2 Narrative: EXAM NARRATIVE: General: Alert, no acute distress. Skin: Warm, dry. Head: Normocephalic, atraumatic. Neck: Supple, trachea midline. Eye: Extraocular movements are intact. Ears, nose, mouth and throat: mucosa moist. Cardiovascular: Regular, Normal peripheral perfusion. Respiratory: Lungs are clear to auscultation, respirations are non-labored, breath sounds are equal, Symmetrical chest wall expansion. Gastrointestinal: Soft, Nontender, Non distended Musculoskeletal: Normal ROM, no deformity. Neurological: Alert and oriented, No focal neurological deficit observed. Psychiatric: Cooperative, appropriate mood & affect. Course 2 Vital Signs: Vital signs: Vital Signs Temperature 97.7 F 04/23/24 14:35 Pulse Rate 73 04/23/24 14:35 Respiratory Rate 18 04/23/24 14:35 Blood Pressure 149/94 04/23/24 14:41 Pulse Oximetry 97 04/23/24 14:35 Oxygen Delivery Me thod Room Air 04/23/24 14:35 MDM - Chest Pain Medical Decision Making Differential diagnosis for patient with chest pain includes but is not limited to and based on the above HPI, review of systems and physical exam: Pneumonia. unstable angina. angina. Acute coronary syndrome / [place]. Pulmonary embolism. Costochondritis / musculoskeletal. Pleurisy. Pericarditis. Esophageal spasm. Pancreatis. Cholecystitis. Orders placed to evaluate differential diagnosis based on the above differential, HPI and physical exam EKG: Time 1436. Rate 67. Normal sinus rhythm, No ST-T changes, no ectopy, normal MN & QRS intervals, This was reviewed and interpreted by an ER physician at 1440 Chest x-ray: No acute process. No infiltrate. No pneumothorax. This was reviewed and interpreted by myself the emergency room physician. I also reviewed the radiology report. Lab Review: Laboratory results were reviewed and interpreted by myself the emergency room physician. Lab work is unremarkable. Mild leukocytosis. No anemia. No renal failure. Serial cardiac markers are negative. I reviewed the patient's medical record. Reexamination: Patient remained stable. No increased work of breathing. No altered mental status. No focal motor deficits. Assessment and plan: Chest pain - Discharged home - Discussed plan with patient. Answered any questions. - Evaluation and treatment of this problem were appropriate in the emergency setting. Lab Data 04/23/24 15:50 04/23/24 15:50 Radiology Impressions Chest X-Ray 04/23/24 14:32 IMPRESSION: 1. Negative chest. Laboratory Results WBC 11.79 10^3/uL (3.29-11.43) H 04/23/24 15:50 RBC 5.28 10^6/uL (3.85-5.65) 04/23/24 15:50 Hgb 14.00 g/dL (11.27-16.99) 04/23/24 15:50 Hct 44.9 % (36-47) 04/23/24 15:50 MCV 85.0 fl (85-98) 04/23/24 15:50 MCH 26.5 pg (27-33) L 04/23/24 15:50 MCHC 31.2 g/dL (30-55) 04/23/24 15:50 RDW 13.3 % (12.1-15.1) 04/23/24 15:50 Plt Count 405 10^3/cmm (157-399) H 04/23/24 15:50 MPV 10.7 fL (7.4-10.4) H 04/23/24 15:50 Neut % (Auto) 59.9 % 04/23/24 15:50 Lymph % (Auto) 24.3 % 04/23/24 15:50 Cole % (Auto) 5.9 % 04/23/24 15:50 Eos % (Auto) 8.7 % 04/23/24 15:50 Baso % (Auto) 0.8 % 04/23/24 15:50 Neut # (Auto) 7.06 10^3/uL (1.8-7.7) 04/23/24 15:50 Lymph # (Auto) 2.9 10^3/uL (0.8-4.8) 04/23/24 15:50 Cole # (Auto) 0.7 10^3/uL (0.2-0.9) 04/23/24 15:50 Eos # (Auto) 1.0 10^3/uL (0.0-0.8) H 04/23/24 15:50 Baso # (Auto) 0.1 10^3/uL (0.0-0.1) 04/23/24 15:50 Nucleated RBC % (auto) 0 % 04/23/24 15:50 Nucleated RBCs # 0.0 /100WBC 04/23/24 15:50 Sodium 138 mmol/L (136-145) 04/23/24 15:50 Potassium 4.5 mmol/L (3.5-5.1) 04/23/24 15:50 Chloride 101 mmol/L (98-107) 04/23/24 15:50 Carbon Dioxide 25 mmol/L (22-29) 04/23/24 15:50 Anion Gap 16.5 (5-19) 04/23/24 15:50 BUN 14 mg/dL (6-20) 04/23/24 15:50 Creatinine 0.6 mg/dL (0.5-0.9) 04/23/24 15:50 GFR Calculation 111.3 mL/min (90-130) 04/23/24 15:50 Glucose 85 mg/dL (65-115) 04/23/24 15:50 Calculated Osmolality 286 mOsm/kg (285-295) 04/23/24 15:50 Calcium 9.8 mg/dL (8.5-10.5) 04/23/24 15:50 Total Bilirubin 0.4 mg/dL (0.15-1.2) 04/23/24 15:50 AST 12 U/L (0-32) 04/23/24 15:50 ALT 8 U/L (0-33) 04/23/24 15:50 Alkaline Phosphatase 83 U/L (35-105) 04/23/24 15:50 Troponin T Baseline < 6 ng/L (0-10) 04/23/24 15:50 Troponin T 120 Minute 6.00 ng/L (0-10) 04/23/24 17:12 Delta Troponin T 0.57820 ABS# (0-10) 04/23/24 17:12 NT-Pro-B Natriuret Pep 71 pg/mL (0-125) 04/23/24 15:50 Total Protein 7.9 g/dL (6.6-8.7) 04/23/24 15:50 Albumin 4.6 g/dL (3.5-5.2) 04/23/24 15:50 Globulin 3.3 g/dL (1.3-4.6) 04/23/24 15:50 Lipase 63 U/L (13-60) H 04/23/24 15:50 All radiology interpretation(s) finalized by discharge Discharge Plan Discharge Patient Disposition: Home Clinical Impression: Non-cardiac chest pain Condition: Stable Prescriptions: No Action (DME) blood-glucose meter [Accu-Chek Letha Plus Meter] Misc See Rx Instructions .ROUTE .MEDSUPPLY Qty: 1 0RF Rx Instructions: As directed (DME) pen needle, diabetic [1st Tier Unifine Pentips] 32 gauge x 5/32 needle See Rx Instructions .ROUTE .MEDSUPPLY Qty: 200 1RF Rx Instructions: 5 daily (DME) Accu-Chek Letha Plus test strp Strip See Rx Instructions .ROUTE .MEDSUPPLY Qty: 200 3RF Rx Instructions: 4 daily (DME) lancets [Accu-Chek Fastclix Lancet Drum] Misc See Rx Instructions .ROUTE .MEDSUPPLY Qty: 200 2RF Rx Instructions: 4 daily glipizide 10 mg tablet 10 mg PO DAILY cetirizine [Zyrtec] 10 mg tablet 10 mg PO DAILY PRN (Reason: allergy symptoms) Qty: 30 0RF buspirone 10 mg tablet 10 mg PO BID Qty: 60 1RF Rx Instructions: For 4 days:Take one-half tablet morning and evening, then increase to 1 tablet twice a day ondansetron HCl 8 mg tablet 8 mg PO Q8H PRN (Reason: nausea and vomiting) Qty: 30 0RF levothyroxine 50 mcg capsule 50 mcg PO DAILY Qty: 30 5RF atorvastatin 20 mg tablet 20 mg PO DAILY Qty: 30 2RF losartan 50 mg tablet 50 mg PO DAILY Qty: 90 1RF Lantus Solostar U-100 Insulin 100 unit/mL (3 mL) insulin pen 50 unit SUBCUT DAILY Qty: 15 0RF (DME) FreeStyle Dejon 3 [place] Misc See Rx Instructions .Route Qty: 1 0RF Rx Instructions: As directed (DME) FreeStyle Dejon 3 Sensor Device See Rx Instructions .Route Qty: 1 6RF Rx Instructions: As directed Byetta 10 mcg/dose(250 mcg/mL) 2.4 mL pen injector 10 mcg SUBCUT BID Qty: 2.4 2RF Rx Instructions: inject 10mcg one before breakfast and one before dinner tizanidine 4 mg tablet 4 mg PO Q6H PRN (Reason: muscle spasticity) Qty: 20 0RF Rx Instructions: do not exceed 3 doses per 24 hrs meloxicam 15 mg Tablet 15 mg PO DAILY spironolactone 25 mg tablet 25 mg PO DAILY gabapentin 300 mg capsule See Rx Instructions .ROUTE .COMPLEX Rx Instructions: TAKE 1 CAPSULE BY MOUTH IN THE MORNING AND AT NOON THEN 2 CAPSULES AT BEDTIME. Discharge Orders: Discharge ED (Routine); Ordered 04/23/24 Ordered By: Renuka Hawkins Referrals: Yessica Jo PA [Primary Care Provider] - Discharge Diet: Usual diet Discharge Activity: Increase activity as tolerated Patient Instructions: Noncardiac Chest Pain (ED), Opioid Safety, Pain Management Activity Restrictions/Additional Instructions: Thank you for choosing [facility] for your healthcare needs today. Please realize this is an emergency room and that we are providing you with a medical screening exam and this may not be complete and all inclusive of all the testing and or work up that you may need to determine your ailment or severity of your illness. You have been screened and evaluated and felt safe for discharge. Health conditions do change or evolve sometimes and as such it is important that you follow up with your Primary Doctor to be re checked, 3-5 days is a general good time frame for follow up. You are always welcome to return to the ED for re assessment if your symptoms are worsening or you have new concerns Coding Level of Care Code ED Small Craft Operator for Soham Morales
[2024-04-23 18:49] VITALS: BP 171/96; PULSE 71; RESP 16; O2SAT 95
[2024-04-23 18:58] VITALS: BP 137/97; PULSE 75; RESP 16; O2SAT 99
== END 2024-04-23 19:00 | disposition home or self-care (01) ==
PROVIDERS: Emergency Medicine; Emergency Provider Emergency Medicine; PCP Physician Assistant
DX: R07.89 Other chest pain (principal); E11.9 Type 2 diabetes mellitus without complications; I10 Essential (primary) hypertension
CPT/HCPCS: 36415; 71045; 80053; 83690; 83880; 84484; 85025; 93005; 99285

== ENCOUNTER → 2024-06-10 10:01 | Outpatient (BNVA) | payer MEDICAID, SELFPAY ==
[2024-05-04 13:57] VITALS: BP 137/97; BMI 55.7
== END ==
PROVIDERS: PCP Physician Assistant; Visit Provider Internal Medicine
DX: E11.9 Type 2 diabetes mellitus without complications (principal); Z79.4 Long term (current) use of insulin; E78.5 Hyperlipidemia, unspecified; E66.01 Morbid (severe) obesity due to excess calories; Z68.44 Body mass index [BMI] 60.0-69.9, adult; E03.9 Hypothyroidism, unspecified
CPT/HCPCS: 99214

== ENCOUNTER → 2024-06-26 13:45 | Outpatient (BNVA) | payer MEDICAID, SELFPAY ==
[2024-05-04 13:57] VITALS: BP 137/97; BMI 55.7
== END ==
PROVIDERS: PCP Physician Assistant; Visit Provider Nurse Practitioner Family
DX: R68.89 Other general symptoms and signs (principal)
CPT/HCPCS: 87400

== ENCOUNTER 2024-07-17 20:50 | Emergency (ER) | payer MEDICAID, SELFPAY ==
[2024-05-04 13:57] VITALS: BP 137/97; BMI 55.7
[2024-07-17 21:18] VITALS: BP 136/83; PULSE 80; RESP 16; TEMP 36.6; O2SAT 96; BMI 56.5
--- NOTE | 2024-07-17 21:38 | W.ED.BACK ---
HPI - Back Pain/Injury General: Chief Complaint: Back Pain/Injury Stated Complaint: Back Pain Time Seen by Provider: 07/17/24 21:03 History of Present Illness: 39-year-old female comes in today with persistent low back pain. Patient reports pain at the lower part of her back. Patient denies any falls or injury. Patient reports no numbness or tingling going down the legs. Patient has been using acetaminophen and ibuprofen for pain with minimal relief. Patient is also use some tizanidine. Patient does have diabetes mellitus. Related Data Home Medications ?Medication ?Instructions ?Recorded ?Confirmed glipizide 10 mg tablet 10 mg PO DAILY 08/12/22 06/26/24 gabapentin 300 mg capsule See Rx Instructions .Route .COMPLEX 12/24/23 06/26/24 meloxicam 15 mg tablet 15 mg PO DAILY 12/24/23 06/26/24 spironolactone 25 mg tablet 25 mg PO DAILY 12/24/23 06/26/24 Previous Rx's ?Medication ?Instructions ?Recorded blood sugar diagnostic (Accu-Chek #200 ea 11/29/19 Letha Plus test strips) blood-glucose meter (Accu-Chek #1 ea 11/29/19 Letha Plus Meter) lancets (Accu-Chek Fastclix Lancet #200 ea 11/29/19 Drum) pen needle, diabetic 32 gauge x #200 ea 11/29/19 532 (1st Tier Unifine Pentips) atorvastatin 20 mg tablet 20 mg PO DAILY #30 tabs 03/30/20 levothyroxine 50 mcg capsule 50 mcg PO DAILY #30 caps 03/30/20 losartan 50 mg tablet 50 mg PO DAILY #90 tabs 03/30/20 insulin glargine 100 unit/mL (3 50 unit (0.5 mL) SUBCUT DAILY #15 05/19/20 mL) subcutaneous pen (Lantus mL Solostar U-100 Insulin) cetirizine 10 mg tablet (Zyrtec) 10 mg PO DAILY PRN allergy 11/12/22 symptoms #30 tabs ondansetron HCl 8 mg tablet 8 mg PO Q8H PRN nausea and 11/14/23 vomiting #30 tabs blood-glucose meter,continuous #1 ea 11/26/23 (FreeStyle Dejon 3 [place]) blood-glucose sensor (FreeStyle #1 ea 11/26/23 Dejon 3 Sensor device) tizanidine 4 mg tablet 4 mg PO Q6H PRN muscle spasticity 12/24/23 #20 tabs buspirone 10 mg tablet 10 mg PO BID #60 tabs 04/22/24 pen needle, diabetic 32 gauge x #12 ea 06/25/24/ (Comfort EZ Pen [place]) semaglutide 0.25 mg or 0.5 mg (2 0.25 mg (0.187 mL) SUBCUT Q7D 8 06/25/24 mg/1.5 mL) subcutaneous pen weeks #3 mL injector (Ozempic) semaglutide 1 mg/dose (4 mg/3 mL) 1 mg (0.75 mL) SUBCUT Q7D 4 weeks 06/25/24 subcutaneous pen injector (Ozempic) #3 mL diclofenac sodium 75 mg 75 mg PO BID PRN pain 7 days #14 07/17/24 tablet,delayed release tabs methocarbamol 750 mg tablet 750 mg PO Q6H PRN muscle pain 10 07/17/24 days #30 tabs Allergies Allergy/AdvReac Type Severity Reaction Status Date / Time cyclobenzaprine (From AdvReac Intermediate Dry Verified 06/26/24 13:10 Flexeril) mouth/can't speak/hives. Review of Systems General: Reports: 10 or more systems reviewed and unremarkable except in HPI and below PFSH ED PFSH: Medical History Nicotine dependence due to vaping non-tobacco product Cannabis dependence Psychiatric care Tenosynovitis of finger Chronic recurrent major depressive disorder Pain management contract signed No pertinent past medical history Denies asthma, seizures, DVT/PE PCP: Dr. Stanley Dyslipidemia Diagnosed in 2016 Type 2 diabetes mellitus, with long-term current use of insulin Diagnosed in 2007 Hypothyroid Diagnosed in 2016 Anxiety and depression Diagnosed in 2016 and has been on medication. Currently managed by Dr. Devries in [facility]. Essential hypertension Diagnosed in 2016 and is currently on medication managed by her primary care provider. 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 Surgical History H/O retained foreign body fully removed (12/15/19) Left upper lip H/O hand surgery Right hand for an infection in 2019 Family History Grandmother Diabetes maternal Family/Other Diabetes maternal uncle Denies family history of Colon cancer Ovarian cancer Heart disease Hyperlipidemia Breast cancer Anesthesia complication Bleeding disorder Hypertension Uterine cancer Thyroid disease Stroke Social History Smoking and tobacco/nicotine status: never used tobacco/nicotine Quit status (tobacco/nicotine): has tried quititng Number of times tried to quit tobacco: 3 Second hand smoke exposure: Yes Alcohol intake: current Alcohol intake frequency: holidays/special occasions only Alcohol type: other Substance/Drug Use: former Date of last use: MARIJUANA- about 2 months. Meth 6 months. Household members: significant other Marital status: Single Current occupational status: disabled Current gender identity: Female Female Reproductive History: Date of last menstrual period: 07/09/24 Physical Exam Const: COMMON NORMALS: alert HENMT: COMMON NORMALS: normocephalic HEAD & SCALP: normocephalic Neck/C-Spine: COMMON NORMALS: full ROM Resp: COMMON NORMALS: normal respiratory effort Cardio: COMMON NORMALS: regular rate RATE: regular rate Back/Pelvis: LUMBAR SPINE/LOWER BACK: No lumbar spinal tenderness and Yes paraspinal muscle tenderness Neuro: SENSORIUM/ORIENTATION: Yes alert Skin: COMMON NORMALS: turgor normal GENERAL SKIN EXAM: turgor normal Course Vital Signs: Vital signs: Vital Signs Temperature 97.8 F 07/17/24 21:18 Pulse Rate 80 07/17/24 21:18 Respiratory Rate 16 07/17/24 21:18 Blood Pressure 136/83 07/17/24 21:18 Pulse Oximetry 96 07/17/24 21:18 Oxygen Delivery Me thod Room Air 07/17/24 21:18 MDM - Back Pain/Injury Medical Decision Making 39-year-old female comes in today with complaints of low back pain for about 2 weeks. Patient states she was lifting some boxes a couple of weeks ago and strained her back. Patient has had persistent pain and discomfort. Patient appears nontoxic. Patient has good mobility. Patient denies any loss of bowel or bladder control. Patient reports no numbness or tingling going down her legs. Differential diagnosis includes but not limited to intervertebral disc disease, facet arthritis, lumbar strain. We patient most likely has a lumbar strain has been persistent. Recommended medications for pain and discomfort and muscle laxation. Encourage fluids rest and follow-up with primary care. No radiology studies performed this visit Discharge Plan Discharge Patient Disposition: Home Clinical Impression: Acute lumbosacral myofascial strain Qualifiers: Encounter type: initial encounter Qualified Code(s): S39.012A - Strain of muscle, fascia and tendon of lower back, initial encounter Condition: Stable Prescriptions: New methocarbamol 750 mg tablet 750 mg PO Q6H PRN (Reason: muscle pain) 10 Days Qty: 30 0RF diclofenac sodium 75 mg tablet,delayed release (DR/EC) 75 mg PO BID PRN (Reason: pain) 7 Days Qty: 14 0RF No Action (DME) blood-glucose meter [Accu-Chek Letha Plus Meter] Misc See Rx Instructions .ROUTE .MEDSUPPLY Qty: 1 0RF Rx Instructions: As directed (DME) pen needle, diabetic [1st Tier Unifine Pentips] 32 gauge x 5/32 needle See Rx Instructions .ROUTE .MEDSUPPLY Qty: 200 1RF Rx Instructions: 5 daily (DME) Accu-Chek Letha Plus test strp Strip See Rx Instructions .ROUTE .MEDSUPPLY Qty: 200 3RF Rx Instructions: 4 daily (DME) lancets [Accu-Chek Fastclix Lancet Drum] Misc See Rx Instructions .ROUTE .MEDSUPPLY Qty: 200 2RF Rx Instructions: 4 daily glipizide 10 mg tablet 10 mg PO DAILY cetirizine [Zyrtec] 10 mg tablet 10 mg PO DAILY PRN (Reason: allergy symptoms) Qty: 30 0RF buspirone 10 mg tablet 10 mg PO BID Qty: 60 1RF Rx Instructions: For 4 days:Take one-half tablet morning and evening, then increase to 1 tablet twice a day ondansetron HCl 8 mg tablet 8 mg PO Q8H PRN (Reason: nausea and vomiting) Qty: 30 0RF levothyroxine 50 mcg capsule 50 mcg PO DAILY Qty: 30 5RF atorvastatin 20 mg tablet 20 mg PO DAILY Qty: 30 2RF losartan 50 mg tablet 50 mg PO DAILY Qty: 90 1RF Lantus Solostar U-100 Insulin 100 unit/mL (3 mL) insulin pen 50 unit SUBCUT DAILY Qty: 15 0RF (DME) FreeStyle Dejon 3 [place] Misc See Rx Instructions .Route Qty: 1 0RF Rx Instructions: As directed (DME) FreeStyle Dejon 3 Sensor Device See Rx Instructions .Route Qty: 1 6RF Rx Instructions: As directed Ozempic 0.25 mg or 0.5 mg(2 mg/1.5 mL) pen injector 0.25 mg SUBCUT Q7D 56 Days Qty: 3 0RF Rx Instructions: Take 0.25 mg weekly for 4 weeks, then take 0.5mg weekly for 4 weeks. Ozempic 1 mg/dose (4 mg/3 mL) pen injector 1 mg SUBCUT Q7D 28 Days Qty: 3 0RF (DME) pen needle, diabetic [Comfort EZ Pen [place]] 32 gauge x 1/4 needle See Rx Instructions .ROUTE .MEDSUPPLY Qty: 12 0RF Rx Instructions: As directed tizanidine 4 mg tablet 4 mg PO Q6H PRN (Reason: muscle spasticity) Qty: 20 0RF Rx Instructions: do not exceed 3 doses per 24 hrs meloxicam 15 mg Tablet 15 mg PO DAILY spironolactone 25 mg tablet 25 mg PO DAILY gabapentin 300 mg capsule See Rx Instructions .ROUTE .COMPLEX Rx Instructions: TAKE 1 CAPSULE BY MOUTH IN THE MORNING AND AT NOON THEN 2 CAPSULES AT BEDTIME. Discharge Orders: Discharge ED (Routine); Ordered 07/17/24 Ordered By: Moshe Cooper Referrals: Yessica Jo PA [Primary Care Provider] - Discharge Diet: Usual diet Discharge Activity: Increase activity as tolerated Patient Instructions: Low Back Strain (ED) Activity Restrictions/Additional Instructions: Activity as tolerated. Follow-up with primary care in 3 to 5 days for recheck. Return to ED for new concerns. Print Language: Bulgarian Coding Level of Care Code ED Pulmonary Nurse Practitioner for Soham Morales
[2024-07-17] MEDS: ketorolac 30 mg/mL INJ IM (21:53)
[2024-07-17] MEDS: orphenadrine 30 mg/mL Inj 2 mL 60 MG IM (21:53)
[2024-07-17 22:26] VITALS: BP 100/74; PULSE 81; O2SAT 94
== END 2024-07-17 22:28 | disposition home or self-care (01) ==
PROVIDERS: Emergency Provider Nurse Practitioner Family; PCP Physician Assistant
DX: S39.012A Strain of muscle, fascia and tendon of lower back, initial encounter (principal); E78.5 Hyperlipidemia, unspecified; E11.9 Type 2 diabetes mellitus without complications; I10 Essential (primary) hypertension; X58.XXXA Exposure to other specified factors, initial encounter
CPT/HCPCS: 96372; 99284; J1885; J2360

== ENCOUNTER 2024-08-31 06:18 | Outpatient (CLI) | payer MEDICAID, SELFPAY ==
[2024-05-04 13:57] VITALS: BP 137/97; BMI 55.7
[2024-08-31 08:00] LABS: Estmated Average Glucose 197; Hemoglobin A1C 8.5 % (4.0-6.0)
[2024-08-31 08:10] LABS: Creatinine Urine, Random 148 mg/dL (28-217); Microalbum Creatinine Ratio Ur 7 mg/dL (0-20); Microalbumin Random Urine 1 ug/dL (0-20)
[2024-08-31 08:13] LABS: Alanine Aminotransferase 12 U/L (0-33); Albumin Level 4.2 g/dL (3.5-5.2); Alkaline Phosphatase 77 U/L (35-105); Anion Gap 14.6 (5-19); Aspartate Amino Transferase 17 U/L (0-32); Blood Urea Nitrogen 10 mg/dL (6-20); Calcium 9.2 mg/dL (8.5-10.5); Carbon Dioxide 27 mmol/L (22-29); Chloride 102 mmol/L (98-107); Chol HDL Ratio 3.44 mg/dL (0.0-4.40); Cholesterol 141 mg/dL (0-200); Globulin 3.8 g/dL (1.3-4.6); Glomerular Filtration Rate 137.4 mL/min (90-130); Glucose 140 mg/dL (65-115); HDL Cholesterol 41 mg/dL (60-100); LDL Cholesterol Calculated 59 mg/dL (50-129); LDL HDL Ratio 1.44 RATIO (0.00-3.22); Osmolality Calculated 289 mOsm/kg (285-295); Potassium 4.6 mmol/L (3.5-5.1); Sodium 139 mmol/L (136-145); Total Bilirubin 0.3 mg/dL (0.15-1.2); Triglycerides 204 mg/dL (0-150)
[2024-08-31 08:20] LABS: Testosterone Total 11.1 ng/dL (8.4-48.1)
[2024-08-31 08:55] LABS: Estradiol 154.5 pg/mL; Follicle Stimulating Hormone 5.9 mIU/mL; Luteinizing Hormone 8.5 mIU/mL (0.5-41.7)
== END 2024-08-31 06:19 | disposition home or self-care (01) ==
PROVIDERS: PCP Physician Assistant; Visit Provider Internal Medicine
DX: L68.0 Hirsutism (principal); E11.9 Type 2 diabetes mellitus without complications; Z79.4 Long term (current) use of insulin; E78.5 Hyperlipidemia, unspecified; E66.01 Morbid (severe) obesity due to excess calories; Z68.44 Body mass index [BMI] 60.0-69.9, adult
CPT/HCPCS: 36415; 80053; 80061; 82044; 82670; 83001; 83002; 83036; 84144; 84403

== ENCOUNTER → 2024-09-08 10:19 | Outpatient (BNVA) | payer MEDICAID, SELFPAY ==
[2024-08-31 17:18] VITALS: BP 100/74; BMI 56.5
== END ==
PROVIDERS: PCP Physician Assistant; Visit Provider Internal Medicine
DX: E11.9 Type 2 diabetes mellitus without complications (principal); Z79.4 Long term (current) use of insulin; E78.5 Hyperlipidemia, unspecified; E03.9 Hypothyroidism, unspecified; E66.01 Morbid (severe) obesity due to excess calories; Z68.44 Body mass index [BMI] 60.0-69.9, adult
CPT/HCPCS: 99214

== ENCOUNTER → 2025-02-16 09:16 | Outpatient (BNVA) | payer MEDICAID, SELFPAY ==
[2024-08-31 17:18] VITALS: BP 100/74; BMI 56.5
== END ==
PROVIDERS: PCP Physician Assistant; Visit Provider Internal Medicine
DX: E11.9 Type 2 diabetes mellitus without complications (principal); Z79.4 Long term (current) use of insulin; E78.5 Hyperlipidemia, unspecified; E03.9 Hypothyroidism, unspecified; E66.01 Morbid (severe) obesity due to excess calories; Z68.44 Body mass index [BMI] 60.0-69.9, adult
CPT/HCPCS: 99214